=== PATIENT | male | born 1945 | race Caucasian/White ===

== ENCOUNTER 2021-04-11 08:57 | Inpatient (IN) ==
[2021-04-11] MEDS ORDERED: FAMOTIDINE 20MG/5ML IV PUSH IV STA (09:07)
[2021-04-11] MEDS ORDERED: ALUMINUM/MAGNESIUM SUSP 30 ML UDC PO STA (09:07)
--- NOTE | 2021-04-11 09:15 | Emergency Department Note ---
History of Present Illness General Chief complaint: Chest Pain Stated complaint: CHEST PAIN Time Seen by Provider: 04/11/21 08:59 Source: patient and EMS Mode of arrival: EMS Limitations: no limitations History of Present Illness Provider complaint: chest pain, sob Onset (ago): hour(s) Location: chest Radiation: non-radiation Severity: moderate Pain Consistency: + intermittent Relieved By: + none Exacerbated By: + none Associated symptoms: + denies other symptoms Treatments prior to arrival: none This is a 75-year-old male brought in by EMS from [facility] due to concern for chest pain and shortness of breath. Per EMS, they were told patient had an episode of chest pain and shortness of breath earlier this morning. He was placed on 4 L via nasal cannula. They state by the time they arrived, patient had no complaints. Patient made hemodynamically stable throughout. Patient currently at [facility] for rehab after recent admission for a right lower extremity cellulitis which is still apparent. EMS reports patient had no EKG changes. Patient denies any radiation of the pain, states it feels like "indigestion". Patient denies a history of GERD/reflux. Patient denies any coming abdominal pain, nausea, vomiting. He states he is unsure if his right lower extremity cellulitis is improving or not. He denies cough, trouble breathing, fevers or chills. Patient is vaccinated against Covid. Per medication list sent with patient, it appears patient is currently taking doxycycline for his cellulitis. Pt seen during a time of high acuity and national emergency pandemic while wearing PPE. Home Medications Medication Instructions Recorded Confirmed Type acetaminophen 325 mg tablet 650 mg PO QID 04/11/21 04/11/21 History albuterol sulfate 90 mcg/actuation 180 inh INHALATION QID PRN 04/11/21 04/11/21 History aerosol inhaler amlodipine 10 mg tablet 10 mg PO DAILY 04/11/21 04/11/21 History aspirin 81 mg tablet,delayed 81 mg PO DAILY 04/11/21 04/11/21 History release atorvastatin 40 mg tablet 80 mg PO HS 04/11/21 04/11/21 History baclofen 10 mg tablet 10 mg PO BID 04/11/21 04/11/21 History bisacodyl 10 mg rectal suppository 10 mg [place] DAILY PRN 04/11/21 04/11/21 History bupropion HCl 150 mg tablet,12 hr 300 mg PO DAILY 04/11/21 04/11/21 History sustained-release docusate sodium 100 mg capsule 100 mg PO BID 04/11/21 04/11/21 History doxycycline hyclate 100 mg tablet 100 mg PO BID 04/11/21 04/11/21 History duloxetine 30 mg capsule,delayed 60 mg PO DAILY 04/11/21 04/11/21 History release enoxaparin 40 mg/0.4 mL 40 mg SUBCUT DAILY 04/11/21 04/11/21 History subcutaneous syringe ergocalciferol (vitamin D2) 1,250 1,250 mcg PO Q7D 04/11/21 04/11/21 History mcg (50,000 unit) capsule (Vitamin D2) finasteride 5 mg tablet 5 mg PO DAILY 04/11/21 04/11/21 History fluticasone propionate 50 2 spray INTRANASAL DAILY 04/11/21 04/11/21 History mcg/actuation nasal spray,suspension furosemide 40 mg tablet 60 mg PO DAILY 04/11/21 04/11/21 History gabapentin 300 mg capsule 600 mg PO TID 04/11/21 04/11/21 History insulin regular human 100 unit/mL See Rx Instructions .ROUTE .COMPLEX 04/11/21 04/11/21 History injection solution (Humulin R Regular U-100 Insulin) lisinopril 20 mg tablet 20 mg PO DAILY 04/11/21 04/11/21 History metformin 1,000 mg tablet 1,000 mg PO BID 04/11/21 04/11/21 History metoprolol succinate 50 mg 50 mg PO DAILY 04/11/21 04/11/21 History tablet,extended release 24 hr multivitamin 1 tab PO DAILY 04/11/21 04/11/21 History nitroglycerin 0.4 mg sublingual 0.4 mg SUBLINGUAL UD PRN 04/11/21 04/11/21 History tablet oxycodone 10 mg tablet,crush 10 mg PO BID 04/11/21 04/11/21 History resistant,extended release 12 hr polyethylene glycol 3350 17 17 g PO DAILY PRN 04/11/21 04/11/21 History gram/dose oral powder sennosides 8.6 mg tablet (senna) 8.6 mg PO DAILY PRN 04/11/21 04/11/21 History sitagliptin 100 mg tablet 100 mg PO DAILY 04/11/21 04/11/21 History tamsulosin 0.4 mg capsule 0.4 mg PO BID 04/11/21 04/11/21 History topiramate 25 mg tablet 50 mg PO HS 04/11/21 04/11/21 History umeclidinium 62.5 mcg-vilanterol 1 ea INHALATION DAILY 04/11/21 04/11/21 History 25 mcg/actuation powdr for inhalation Allergies Allergy/AdvReac Type Severity Reaction Status Date / Time No Known Allergies Allergy Unverified 04/11/21 10:45 Past Med/Surg History Medical History BPH (benign prostatic hyperplasia) CAD (coronary artery disease) 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 Chronic diastolic CHF (congestive heart failure) COPD (chronic obstructive pulmonary disease) DM type 2 (diabetes mellitus, type 2) Factor VIII deficiency hemophilia HTN (hypertension) CHRISTINE on CPAP Surgical History History of neck surgery History of right-sided carotid endarterectomy Family History Mother Hypertension Social History Smoking Status: Former smoker Tobacco Type: Cigarettes Hx Alcohol Use: No Feels Safe at Home: Yes Review of Systems A total of 10 systems reviewed and were otherwise negative All systems reviewed & are unremarkable except as noted in HPI & below Physical Exam Vital Signs Vital Signs - 24 hr 04/11/21 09:00 04/11/21 10:01 04/11/21 10:35 Temperature 37.0 C Temperature Source Oral Pulse Rate 82 Pulse Rate [Right Finger] 78 Respiratory Rate 20 18 22 Respiratory Effort / Characteristics Non-Labored Non-Labored Respiratory Depth Normal Normal Blood Pressure 144/78 H Blood Pressure [Right Arm] 150/92 H 156/93 H Blood Pressure Mean 100 Blood Pressure Mean [Right Arm] 111 114 Pulse Oximetry 92 92 93 Oxygen Delivery Method Room Air Room Air Room Air Sepsis Recent Fever Within 48 Hours No Sepsis New/Unexplained Change in Mental Status N/A Sepsis Action Taken by Nursing No Action Required 04/11/21 12:12 04/11/21 13:33 Temperature Temperature Source Pulse Rate Pulse Rate [Right Finger] 78 82 Respiratory Rate 18 20 Respiratory Effort / Characteristics Non-Labored Non-Labored Respiratory Depth Normal Normal Blood Pressure Blood Pressure [Right Arm] 150/85 H 157/91 H Blood Pressure Mean Blood Pressure Mean [Right Arm] 106 113 Pulse Oximetry 92 95 Oxygen Delivery Method Room Air Room Air Sepsis Recent Fever Within 48 Hours Sepsis New/Unexplained Change in Mental Status Sepsis Action Taken by Nursing GENERAL: alert, unwell appearing, well nourished, no distress, non-toxic EYE EXAM: normal conjunctiva, PERRL and EOM's grossly intact OROPHARYNX: no exudate, no erythema, lips, buccal mucosa, and tongue normal and mucous membranes are moist NECK: supple, no nuchal rigidity, no adenopathy, non-tender LUNGS: Clear but diminished to auscultation. Normal chest wall mechanics, no w/r/r, oxygen 92% on room air HEART: no murmurs, S1 normal and S2 normal, no reproducible chest wall tenderness with palpation ABDOMEN: abdomen soft, non-tender, normo-active bowel sounds, no masses, no rebound or guarding. BACK: Back is symmetrical on inspection and there is no deformity, no midline tenderness, no CVA tenderness. SKIN: no rashes and no bruising UPPER EXTREMITIES: upper extremities are grossly normal. FROM, nml pulses b/l. LOWER EXTREMITIES: No pitting edema. nml pulses b/l. Atrophy of bilateral lower extremities. Right lower extremity with obvious cellulitis to the anterior tib-fib region, outlined previously. No obvious drainage, bleeding, petechiae, bullae, or sloughing. NEURO EXAM: Normal sensorium, cranial nerves II-XII grossly intact, normal speech, no gross weakness of arms, no gross weakness of legs. Gross sensation intact. Course Course 1052: Updated patient and at bedside. Patient did have a heart attack in 2018, stenting performed at [facility] [place]. Patient has been following with a Dr. Heaton in [place] through the [facility] system. states she does not believe he has had a stress test or echo since that time. She states when she got here patient was still complaining of pain, however now when I ask him he says it is gone. 1130: Discussed with PREMA Collado, [facility] hospitalist service. Administered Medications Sodium Chloride (Nss 1000ml) 1,000 mls @ 80 mls/hr IV .[id number] BHARTI Stop: 05/11/21 13:29 Last Admin: 04/11/21 15:11 Dose: 80 mls/hr Documented by: [id number] Discontinued Medications Al Hydrox/Mg Hydrox/Simethicone (Aluminum/Magnesium Susp 30 Ml Udc) 15 ml PO NOW STA Stop: 04/11/21 09:08 Last Admin: 04/11/21 09:58 Dose: 15 ml Documented by: [id number] Famotidine (Famotidine 20mg/5ml Iv Push) 20 mg IV ONE STA Stop: 04/11/21 09:08 Last Admin: 04/11/21 09:58 Dose: 20 mg Documented by: [id number] Potassium Chloride (Potassium Chloride Crtab 20 Meq Tabcr) 40 meq PO ONE ONE Stop: 04/11/21 13:19 Last Admin: 04/11/21 15:11 Dose: 40 meq Documented by: [id number] Medical Decision Making Differential Diagnosis Differential diagnoses includes but is not limited to acute coronary syndrome, myocardial infarction, pericarditis, pulmonary embolus, aortic dissection, pneumonia, pneumothorax, musculoskeletal, shingles, esophageal. Medical Records Attestation: I reviewed the patient's medical records. Home Medications Current Medication List: was personally reviewed by me Laboratory Data Attestation: I reviewed the patient's lab results. Result diagrams: 04/11/21 09:25 04/11/21 09:25 Lab Results 04/11/21 04/11/21 04/11/21 Range/Units 09:25 09:25 09:25 WBC 10.62 (4.8-10.8) K/uL RBC 4.46 L (4.7-6.1) M/uL Hgb 14.3 (14.0-18.0) g/dL Hct 41.6 L (42-52) % MCV 93.3 (80-100) fL MCH 32.1 (25-34) pg MCHC 34.4 (32-36) g/dL RDW Std Deviation 47.5 H (36.4-46.3) fL RDW Coeff of Sabrina 13.9 (11.5-14.5) % Plt Count 287 (130-400) K/uL MPV 9.9 (7.4-10.4) fL Immature Gran % (Auto) 1.1 % Neut % (Auto) 77.6 % Lymph % (Auto) 9.6 % [place] % (Auto) 8.2 % Eos % (Auto) 3.2 % Baso % (Auto) 0.3 % Neut # (Auto) 8.24 H (1.4-6.5) K/uL Lymph # (Auto) 1.02 L (1.2-3.4) K/uL [place] # (Auto) 0.87 H (0.11-0.59) K/uL Eos # (Auto) 0.34 (0-0.5) K/uL Baso # (Auto) 0.03 (0-0.2) K/uL Immature Gran # (Auto) 0.12 H (0.00-0.02) K/uL Sodium 141 (136-145) mmol/L Potassium 3.3 L (3.5-5.1) mmol/L Chloride 108 H (98-107) mmol/L Carbon Dioxide 24 (21-32) mmol/L Anion Gap 9.0 (3-11) BUN 39 H (7-18) mg/dl Creatinine 1.61 H (0.6-1.4) mg/dl Est Cr Clr Drug Dosing 42.9 ml/min Est GFR ( Amer) 47.1 ml/min Est GFR (Non-Af Amer) 40.6 ml/min BUN/Creatinine Ratio 24.0 H (10-20) Glucose 148 H (70-99) mg/dl Calcium 9.0 (8.5-10.1) mg/dl Magnesium 2.0 2.1 (1.8-2.4) mg/dl Total Bilirubin 0.7 (0.2-1) mg/dl AST 21 (15-37) U/L ALT 32 (12-78) U/L Alkaline Phosphatase 95 (45-117) U/L Troponin I < 0.015 (0-0.045) ng/ml NT-Pro-B Natriuret Pep 248 (0-1800) pg/ml Total Protein 7.4 (6.4-8.2) gm/dl Albumin 2.8 L (3.4-5.0) gm/dl Globulin 4.6 H (2.5-4.0) gm/dl Albumin/Globulin Ratio 0.6 L (0.9-2) Lipase 64 L (73-393) U/L COVID-19 Eval Order SARS-CoV-2 (PCR) (Negative) 04/11/21 04/11/21 04/11/21 Range/Units 09:25 12:54 12:54 WBC (4.8-10.8) K/uL RBC (4.7-6.1) M/uL Hgb (14.0-18.0) g/dL Hct (42-52) % MCV (80-100) fL MCH (25-34) pg MCHC (32-36) g/dL RDW Std Deviation (36.4-46.3) fL RDW Coeff of Sabrina (11.5-14.5) % Plt Count (130-400) K/uL MPV (7.4-10.4) fL Immature Gran % (Auto) % Neut % (Auto) % Lymph % (Auto) % [place] % (Auto) % Eos % (Auto) % Baso % (Auto) % Neut # (Auto) (1.4-6.5) K/uL Lymph # (Auto) (1.2-3.4) K/uL [place] # (Auto) (0.11-0.59) K/uL Eos # (Auto) (0-0.5) K/uL Baso # (Auto) (0-0.2) K/uL Immature Gran # (Auto) (0.00-0.02) K/uL Sodium (136-145) mmol/L Potassium (3.5-5.1) mmol/L Chloride (98-107) mmol/L Carbon Dioxide (21-32) mmol/L Anion Gap (3-11) BUN (7-18) mg/dl Creatinine (0.6-1.4) mg/dl Est Cr Clr Drug Dosing ml/min Est GFR ( Amer) ml/min Est GFR (Non-Af Amer) ml/min BUN/Creatinine Ratio (10-20) Glucose (70-99) mg/dl Calcium (8.5-10.1) mg/dl Magnesium (1.8-2.4) mg/dl Total Bilirubin (0.2-1) mg/dl AST (15-37) U/L ALT (12-78) U/L Alkaline Phosphatase (45-117) U/L Troponin I < 0.015 (0-0.045) ng/ml NT-Pro-B Natriuret Pep (0-1800) pg/ml Total Protein (6.4-8.2) gm/dl Albumin (3.4-5.0) gm/dl Globulin (2.5-4.0) gm/dl Albumin/Globulin Ratio (0.9-2) Lipase (73-393) U/L COVID-19 Eval Order Covid19 at [facility] SARS-CoV-2 (PCR) NEGATIVE (Negative) Imaging Data Radiologist's Impression: Chest X-Ray 04/11/21 09:08 SINGLE VIEW CHEST CLINICAL HISTORY: Atypical chest pain. FINDINGS: 2 AP, portable, upright chest radiographs are obtained. No prior studies are available for comparison at the time of dictation. The heart is top normal for projection. The pulmonary vasculature is noncongested. There is elevation of the right hemidiaphragm with atelectasis of the right lower lung. No airspace consolidation typical for pneumonia or large pleural effusion is identified. No pneumothorax is seen. The skeletal structures are osteopenic. Fusion hardware is noted in the lower cervical spine. There are compression deformities with evidence of previous vertebroplasty in the thoracic spine. Healed rib fractures are seen bilaterally. IMPRESSION: No acute cardiopulmonary abnormality. ACT 112: Negative or not required by law. Electronically signed by: Jerrell Winn M.D. 04/11/2021 9:58 AM ECG Data Attestation: I personally reviewed and interpreted this ECG as follows: Indication: + chest pain Rate (beats per minute): 84 Rhythm: + normal sinus ECG Intervals/blocks: + Normal QRS and + Prolonged QT ECG [place]: + Normal ECG ST segments: + T-wave inversions (V2-3, flat in I, aVL ) Comparison ECG Date: from (04/02/2021) Change: the following changes noted (new T wave inversion in V2-3) MDM Narrative This is a 75-year-old male presents emergency department following an episode of chest pain and shortness of breath earlier today. Patient's chest pain seem to be waxing and waning. Was initially improved with Pepcid and Maalox, however did return again and then hafsa without any additional intervention. Patient with an elevated heart score given multiple risk factors and prior AR with stent placement. Patient currently doing inpatient rehab for treatment of a right lower extremity cellulitis and is taking doxycycline. I do feel this could be contributing although cannot rule out underlying ACS given significant prior h istory. Patient otherwise remained hemodynamically stable. Had no episodes of recurrent shortness of breath and no hypoxia. Patient was afebrile, and outlined area of cellulitis to the right lower extremity does not appear worsened. No exam findings to suggest evolving necrotizing fasciitis. Mild YUMI was noted on the patient, however in review of his medication list patient was also recently started on furosemide. Results discussed with patient and at bedside, and case reviewed with PREMA Collado with the hospitalist service. They will evaluate for additional inpatient treatment. An order was placed for continuous cardiac monitoring. The monitor shows a rate of _80_ with _normal sinus rhythm. Impression & Plan Chest pain, YUMI (acute kidney injury), Abnormal ECG, Cellulitis of right lower extremity Discharge Plan Visit Data Chief Complaint: Chest Pain Stated Complaint: CHEST PAIN ED Provider: Michelle Willett Discharge Problem: Chest pain, YUMI (acute kidney injury), Abnormal ECG, Cellulitis of right lower extremity Forms Stand Alone Forms: My [facility] [employer] Prescriptions Prescriptions: No Action amlodipine 10 mg tablet 10 mg PO DAILY RF: 0 multivitamin Tablet 1 tab PO DAILY RF: 0 furosemide 40 mg tablet 60 mg PO DAILY RF: 0 atorvastatin 40 mg Tablet 80 mg PO HS RF: 0 bupropion HCl 150 mg Tablet Sustained-Release 12 Hr 300 mg PO DAILY RF: 0 sennosides [senna] 8.6 mg Tablet 8.6 mg PO DAILY PRN (Reason: Constipation) RF: 0 acetaminophen 325 mg Tablet 650 mg PO QID RF: 0 metoprolol succinate 50 mg Tablet Extended Release 24 Hr 50 mg PO DAILY RF: 0 lisinopril 20 mg tablet 20 mg PO DAILY RF: 0 topiramate 25 mg Tablet 50 mg PO HS RF: 0 aspirin 81 mg Tablet,Delayed Release (Dr/Ec) 81 mg PO DAILY RF: 0 tamsulosin 0.4 mg Capsule 0.4 mg PO BID RF: 0 baclofen 10 mg Tablet 10 mg PO BID RF: 0 bisacodyl 10 mg Suppository 10 mg [place] DAILY PRN (Reason: Constipation) RF: 0 metformin 1,000 mg Tablet 1,000 mg PO BID RF: 0 Humulin R Regular U-100 Insuln 100 unit/mL Solution See Rx Instructions .ROUTE .COMPLEX RF: 0 nitroglycerin 0.4 mg Tablet, Sublingual 0.4 mg sublingual UD PRN (Reason: Chest Pain) RF: 0 docusate sodium 100 mg Capsule 100 mg PO BID RF: 0 gabapentin 300 mg Capsule 600 mg PO TID RF: 0 ergocalciferol (vitamin D2) [Vitamin D2] 1,250 mcg (50,000 unit) Capsule 1,250 mcg PO Q7D RF: 0 polyethylene glycol 3350 17 gram/dose Powder 17 g PO DAILY PRN (Reason: Constipation) RF: 0 fluticasone propionate 50 mcg/actuation spray,suspension 2 spray INTRANASAL DAILY RF: 0 doxycycline hyclate 100 mg Tablet 100 mg PO BID RF: 0 finasteride 5 mg tablet 5 mg PO DAILY RF: 0 enoxaparin 40 mg/0.4 mL Syringe 40 mg SUBCUT DAILY RF: 0 duloxetine 30 mg capsule,delayed release(DR/EC) 60 mg PO DAILY RF: 0 sitagliptin 100 mg Tablet 100 mg PO DAILY RF: 0 umeclidinium-vilanterol 62.5-25 mcg/actuation Blister With Device 1 ea INHALATION DAILY RF: 0 oxycodone 10 mg Tablet,Oral Only,Ext.Rel.12 Hr 10 mg PO BID RF: 0 albuterol sulfate 90 mcg/actuation HFA aerosol inhaler 180 inh INHALATION QID PRN (Reason: Shortness Of Breath) RF: 0 Referrals Referrals: [facility] [Primary Care Provider] - Discharge Problem: Chest pain Qualifiers: Chest pain type: unspecified Qualified Code(s): R07.9 - Chest pain, unspecified
[2021-04-11 09:40] LABS: Basophils # (auto) 0.03 K/uL (0-0.2); Basophils % (auto) 0.3 %; Eosinophils # (auto) 0.34 K/uL (0-0.5); Eosinophils % (auto) 3.2 %; Hematocrit (blood only) 41.6 % (42-52); Hemoglobin 14.3 g/dL (14.0-18.0); Immature Granulocytes # (auto) 0.12 K/uL (0.00-0.02); Immature Granulocytes % (auto) 1.1 %; Lymphocytes # (auto) 1.02 K/uL (1.2-3.4); Lymphocytes % (auto) 9.6 %; Mean Corpuscular Hemoglobin 32.1 pg (25-34); Mean Corpuscular Hgb Conc 34.4 g/dL (32-36); Mean Corpuscular Volume 93.3 fL (80-100); Mean Platelet Volume 9.9 fL (7.4-10.4); Monocytes # (auto) 0.87 K/uL (0.11-0.59); Monocytes % (auto) 8.2 %; Neutrophils # (auto) 8.24 K/uL (1.4-6.5); Neutrophils % (auto) 77.6 %; Platelet Count 287 K/uL (130-400); RDW Coefficient of Variation 13.9 % (11.5-14.5); RDW Standard Deviation 47.5 fL (36.4-46.3); Red Blood Count 4.46 M/uL (4.7-6.1); White Blood Count 10.62 K/uL (4.8-10.8)
[2021-04-11 09:57] LABS: Alanine Aminotransferase 32 U/L (12-78); Albumin Level 2.8 gm/dl (3.4-5.0); Aspartate Aminotransferase 21 U/L (15-37); Blood Urea Nitrogen 39 mg/dl (7-18); Carbon Dioxide 24 mmol/L (21-32); Chloride 108 mmol/L (98-107); Creatinine Clr Calc Pharmacy 42.9 ml/min; Est GFR (African American) 47.1 ml/min; Est GFR (Non-African American) 40.6 ml/min; Glucose 148 mg/dl (70-99); Lipase 64 U/L (73-393); Potassium 3.3 mmol/L (3.5-5.1); Sodium 141 mmol/L (136-145)
--- NOTE | 2021-04-11 09:59 | XRay Report ---
SINGLE VIEW CHEST CLINICAL HISTORY: Atypical chest pain. FINDINGS: 2 AP, portable, upright chest radiographs are obtained. No prior studies are available for comparison at the time of dictation. The heart is top normal for projection. The pulmonary vasculatu re is noncongested. There is elevation of the right hemidiaphragm with atelectasis of the right lower lung. No airspace consolidation typical for pneumonia or large pleural effusion is identified. No pn eumothorax is seen. The skeletal structures are osteopenic. Fusion hardware is noted in the lower cer vical spine. There are compression deformities with evidence of previous vertebroplasty in the thorac ic spine. Healed rib fractures are seen bilaterally. IMPRESSION: No acute cardiopulmonary abnormality. ACT 112: Negative or not required by law. Electronically signed by: Jerrell Winn M.D. 04/11/2021 9:58 AM
[2021-04-11 10:02] LABS: Albumin Globulin Ratio 0.6 (0.9-2); Alkaline Phosphatase 95 U/L (45-117); Bilirubin,Total 0.7 mg/dl (0.2-1); Globulin 4.6 gm/dl (2.5-4.0); NT Pro B Type Natriuretic Pept 248 pg/ml (0-1800); Total Protein 7.4 gm/dl (6.4-8.2); Troponin I < 0.015 ng/ml (0-0.045)
[2021-04-11] MEDS ORDERED: POTASSIUM CHLORIDE CRTAB 20 MEQ TABCR PO ONE (13:18)
--- NOTE | 2021-04-11 13:42 | Cardiology Consultation ---
Date of Consultation April 11, 2021 Assessment & Plan (1) Cellulitis of right lower extremity: (2) Chest pain: (3) YUMI (acute kidney injury): (4) Factor VIII deficiency hemophilia: (5) CAD (coronary artery disease): (6) Chronic diastolic CHF (congestive heart failure): The patient is currently hemodynamically stable and is not having any chest pain or shortness of breath. I would admit the patient and draw additional cardiac markers and serial EKGs. We will follow along with you during his hospital stay. History of Present Illness History of Present Illness This is a 75-year-old male patient who is not a good historian but his is at his bedside. 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 According to his he has been in a wheelchair ever since. She has been his caregiver following that procedure. In 2017 he did present with an inferior wall myocardial infarction received a bare-metal stent within the right coronary artery. From a cardiac standpoint he has been stable but recently he had some mental status changes and was admitted to [facility] with sepsis and a right lower extremity cellulitis. Eventually he was transferred to [facility] and has been there approximately 5 days. According to his and the medical record he had chest pain there this morning and was transferred to the emergency department. His EKG here shows no acute changes. First set of cardiac markers are negative. He currently is asymptomatic and in no acute distress. Past medical history: 1. 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 Chronic diastolic heart failure 3. Hypertension 4. Dyslipidemia 5. Carotid artery disease status post right CEA 6. Diabetes with neuropathy 7. COPD 8. Hemophilia with factor VIII deficiency 9. Obstructive sleep apnea Allergies Allergy/AdvReac Type Severity Reaction Status Date / Time No Known Allergies Allergy Unverified 04/11/21 10:45 Home Medications Medication Instructions Recorded Confirmed Type acetaminophen 325 mg tablet 650 mg PO QID 04/11/21 04/11/21 History albuterol sulfate 90 mcg/actuation 180 inh INHALATION QID PRN 04/11/21 04/11/21 History aerosol inhaler amlodipine 10 mg tablet 10 mg PO DAILY 04/11/21 04/11/21 History aspirin 81 mg tablet,delayed 81 mg PO DAILY 04/11/21 04/11/21 History release atorvastatin 40 mg tablet 80 mg PO HS 04/11/21 04/11/21 History baclofen 10 mg tablet 10 mg PO BID 04/11/21 04/11/21 History bisacodyl 10 mg rectal suppository 10 mg MS DAILY PRN 04/11/21 04/11/21 History bupropion HCl 150 mg tablet,12 hr 300 mg PO DAILY 04/11/21 04/11/21 History sustained-release docusate sodium 100 mg capsule 100 mg PO BID 04/11/21 04/11/21 History doxycycline hyclate 100 mg tablet 100 mg PO BID 04/11/21 04/11/21 History duloxetine 30 mg capsule,delayed 60 mg PO DAILY 04/11/21 04/11/21 History release enoxaparin 40 mg/0.4 mL 40 mg SUBCUT DAILY 04/11/21 04/11/21 History subcutaneous syringe ergocalciferol (vitamin D2) 1,250 1,250 mcg PO Q7D 04/11/21 04/11/21 History mcg (50,000 unit) capsule (Vitamin D2) finasteride 5 mg tablet 5 mg PO DAILY 04/11/21 04/11/21 History fluticasone propionate 50 2 spray INTRANASAL DAILY 04/11/21 04/11/21 History mcg/actuation nasal spray,suspension furosemide 40 mg tablet 60 mg PO DAILY 04/11/21 04/11/21 History gabapentin 300 mg capsule 600 mg PO TID 04/11/21 04/11/21 History insulin regular human 100 unit/mL See Rx Instructions .ROUTE .COMPLEX 04/11/21 04/11/21 History injection solution (Humulin R Regular U-100 Insulin) lisinopril 20 mg tablet 20 mg PO DAILY 04/11/21 04/11/21 History metformin 1,000 mg tablet 1,000 mg PO BID 04/11/21 04/11/21 History metoprolol succinate 50 mg 50 mg PO DAILY 04/11/21 04/11/21 History tablet,extended release 24 hr multivitamin 1 tab PO DAILY 04/11/21 04/11/21 History nitroglycerin 0.4 mg sublingual 0.4 mg SUBLINGUAL UD PRN 04/11/21 04/11/21 History tablet oxycodone 10 mg tablet,crush 10 mg PO BID 04/11/21 04/11/21 History resistant,extended release 12 hr polyethylene glycol 3350 17 17 g PO DAILY PRN 04/11/21 04/11/21 History gram/dose oral powder sennosides 8.6 mg tablet (senna) 8.6 mg PO DAILY PRN 04/11/21 04/11/21 History sitagliptin 100 mg tablet 100 mg PO DAILY 04/11/21 04/11/21 History tamsulosin 0.4 mg capsule 0.4 mg PO BID 04/11/21 04/11/21 History topiramate 25 mg tablet 50 mg PO HS 04/11/21 04/11/21 History umeclidinium 62.5 mcg-vilanterol 1 ea INHALATION DAILY 04/11/21 04/11/21 History 25 mcg/actuation powdr for inhalation Patient History Medical History BPH (benign prostatic hyperplasia) CAD (coronary artery disease) 01/2018-inferior [place] s/p BMS to proximal RCA Chronic diastolic CHF (congestive heart failure) COPD (chronic obstructive pulmonary disease) DM type 2 (diabetes mellitus, type 2) Factor VIII deficiency hemophilia HTN (hypertension) CHRISTINE on CPAP Surgical History History of neck surgery History of right-sided carotid endarterectomy Family History Mother Hypertension Social History Smoking Status: Former smoker Tobacco Type: Cigarettes Hx Alcohol Use: No Feels Safe at Home: Yes Review of Systems Review of Systems: Unobtainable Physical Exam Physical Exam: General: no acute distress and stated age Head: normocephalic, no masses, lesions, tenderness or abnormalities Eyes: conjunctiva are pink and non-injected, sclera clear Neck: supple, no adenopathy, no bruits, normal jugular venous pulse, no hepatojugular reflux Chest: normal shape and normal respiratory effort Lungs: clear to auscultation and percussion Cardiac Exam: - regular rate & rhythm, no murmurs gallops or rubs - normal S1, normal S2 Pulses: 2(+) throughout Abdomen: abdomen soft, non-tender, no abnormal masses and no hepatosplenomegaly Musculoskeletal: no gait disturbance, no joint inflammation, no deforming arthritis Extremities: Right lower extremity is red and erythematous with a bandage on the ojhnson. Neuro: grossly normal exam Results & Data ([facility]) Vital Signs (Past 12 Hours) Vital Signs Temp Pulse Pulse Resp BP BP Pulse Ox 04/11/21 13:33 82 20 157/91 H 95 04/11/21 12:12 78 18 150/85 H 92 04/11/21 10:35 78 22 156/93 H 93 04/11/21 10:01 18 150/92 H 92 04/11/21 09:00 37.0 C 82 20 144/78 H 92 Laboratory Results Laboratory Results - last 24 hr 04/11/21 04/11/21 04/11/21 09:25 09:25 09:25 WBC 10.62 RBC 4.46 L Hgb 14.3 Hct 41.6 L MCV 93.3 MCH 32.1 MCHC 34.4 RDW Std Deviation 47.5 H RDW Coeff of Sabrina 13.9 Plt Count 287 MPV 9.9 Immature Gran % (Auto) 1.1 Neut % (Auto) 77.6 Lymph % (Auto) 9.6 Hendricks % (Auto) 8.2 Eos % (Auto) 3.2 Baso % (Auto) 0.3 Neut # (Auto) 8.24 H Lymph # (Auto) 1.02 L Hendricks # (Auto) 0.87 H Eos # (Auto) 0.34 Baso # (Auto) 0.03 Immature Gran # (Auto) 0.12 H Sodium 141 Potassium 3.3 L Chloride 108 H Carbon Dioxide 24 Anion Gap 9.0 BUN 39 H Creatinine 1.61 H Est Cr Clr Drug Dosing 42.9 Est GFR ( Amer) 47.1 Est GFR (Non-Af Amer) 40.6 BUN/Creatinine Ratio 24.0 H Glucose 148 H Calcium 9.0 Magnesium 2.0 Pending Total Bilirubin 0.7 AST 21 ALT 32 Alkaline Phosphatase 95 Troponin I < 0.015 NT-Pro-B Natriuret Pep 248 Total Protein 7.4 Albumin 2.8 L Globulin 4.6 H Albumin/Globulin Ratio 0.6 L Lipase 64 L COVID-19 Eval Order SARS-CoV-2 (PCR) 04/11/21 04/11/21 12:54 12:54 WBC RBC Hgb Hct MCV MCH MCHC RDW Std Deviation RDW Coeff of Sabrina Plt Count MPV Immature Gran % (Auto) Neut % (Auto) Lymph % (Auto) Hendricks % (Auto) Eos % (Auto) Baso % (Auto) Neut # (Auto) Lymph # (Auto) Hendricks # (Auto) Eos # (Auto) Baso # (Auto) Immature Gran # (Auto) Sodium Potassium Chloride Carbon Dioxide Anion Gap BUN Creatinine Est Cr Clr Drug Dosing Est GFR ( Amer) Est GFR (Non-Af Amer) BUN/Creatinine Ratio Glucose Calcium Magnesium Total Bilirubin AST ALT Alkaline Phosphatase Troponin I NT-Pro-B Natriuret Pep Total Protein Albumin Globulin Albumin/Globulin Ratio Lipase COVID-19 Eval Order Covid19 at [facility] SARS-CoV-2 (PCR) NEGATIVE Medications Administered Current Inpatient Medications Sodium Chloride (Nss 1000ml) 1,000 mls @ 80 mls/hr IV .[id number] BHARTI Stop: 05/11/21 13:29
--- NOTE | 2021-04-11 13:58 | History & Physical Report ---
Date of Service April 11, 2021 Assessment & Plan (1) Chest pain: (2) CAD (coronary artery disease): Plan: -Admit to telemetry -Patient presenting from [facility] with reports of an episode of chest pain. Patient is a poor historian. -History of CAD, inferior wall AK in 2018 s/p BMS to proximal RCA -In the ED, patient's EKG shows new T wave inversions in leads V1 through V3, initial troponin negative -Symptoms may be GI in nature due to recent initiation of doxycycline, however given risk factors will admit patient to rule out ACS -Serial cardiac enzymes, resting echo -Cardiology consult, case discussed with Dr. Gonzalez -Continue ASA, statin, beta-bryant. Holding CAYDEN inhibitor due to YUMI (3) YUMI (acute kidney injury): Plan: -Creatinine 1.6 (baseline ~ 1.1) -Patient's reports that he does not drink a lot of fluids at baseline. -Likely prerenal nature due to poor p.o. intake in combination with CAYDEN inhibitor and diuretic use -Hold lisinopril and furosemide -Gentle IVF, follow-up renal functions (4) Cellulitis of right lower extremity: Plan: -Recently admitted to [facility] for sepsis due to cellulitis of right lower extremity -Discharged on doxycycline, patient to complete course on 04/15 (5) HTN (hypertension): Plan: -BP elevated, may be situational -Continue metoprolol and amlodipine, holding lisinopril as above. (6) Chronic diastolic CHF (congestive heart failure): Plan: -Currently with YUMI, therefore will hold furosemide -Monitor volume status closely (7) CHRISTINE on CPAP: Plan: -CPAP as per home settings (8) COPD (chronic obstructive pulmonary disease): Plan: -No signs of acute exacerbation, continue home inhalers (9) DM type 2 (diabetes mellitus, type 2): Plan: -Hgb A1c 6.5 02/2021 -NovoLog per protocol while hospitalized (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: Plan: -No acute issues, follows with the hemophilia center at [facility] (11) DVT prophylaxis: Plan: -SQ heparin History of Present Illness Chief Complaint: Chest pain [facility] 75[facility] with PMH DM type II, COPD, CHRISTINE on CPAP, chronic diastolic CHF, CAD s/p inferior AK and BMS to proximal RCA, GERD, BPH, factor VIII deficiency hemophilia, history of right carotid endarterectomy, and other problems listed below who presents to the ED for evaluation of chest pain. Patient was recently admitted to [facility] 04/02 through 04/07 for right lower extremity cellulitis. Right foot x-ray showed a second metatarsal fracture. Patient was discharged on p.o. doxycycline. He was discharged to [facility] for rehab. Patient is a somewhat poor historian. is at the bedside. She reports that since the patient's neck surgery in 2012, he has been mostly wheelchair-bound. He is able to transfer to bed and commode. This morning, patient reports that he developed a substernal chest pain while lying in bed. Describes the pain as a pressure and when asked rate intensity he states " it was bad enough". He denies associated shortness of breath, nausea, diaphoresis. Patient is unsure how long the pain lasted. He had another similar episode in the ED. No fevers or chills. Denies vomiting, abdominal pain, diarrhea. No urinary symptoms. In the ED, EKG shows new T wave inversions in leads V1-V3, initial troponin is negative. Labs show a mild YUMI with creatinine 1.6 (baseline ~ 1.0). Patient was given GI cocktail and IV famotidine. Allergies Allergy/AdvReac Type Severity Reaction Status Date / Time No Known Allergies Allergy Unverified 04/11/21 10:45 Home Medications Medication Instructions Recorded Confirmed Type acetaminophen 325 mg tablet 650 mg PO QID 04/11/21 04/11/21 History albuterol sulfate 90 mcg/actuation 180 inh INHALATION QID PRN 04/11/21 04/11/21 History aerosol inhaler amlodipine 10 mg tablet 10 mg PO DAILY 04/11/21 04/11/21 History aspirin 81 mg tablet,delayed 81 mg PO DAILY 04/11/21 04/11/21 History release atorvastatin 40 mg tablet 80 mg PO HS 04/11/21 04/11/21 History baclofen 10 mg tablet 10 mg PO BID 04/11/21 04/11/21 History bisacodyl 10 mg rectal suppository 10 mg KS DAILY PRN 04/11/21 04/11/21 History bupropion HCl 150 mg tablet,12 hr 300 mg PO DAILY 04/11/21 04/11/21 History sustained-release docusate sodium 100 mg capsule 100 mg PO BID 04/11/21 04/11/21 History doxycycline hyclate 100 mg tablet 100 mg PO BID 04/11/21 04/11/21 History duloxetine 30 mg capsule,delayed 60 mg PO DAILY 04/11/21 04/11/21 History release enoxaparin 40 mg/0.4 mL 40 mg SUBCUT DAILY 04/11/21 04/11/21 History subcutaneous syringe ergocalciferol (vitamin D2) 1,250 1,250 mcg PO Q7D 04/11/21 04/11/21 History mcg (50,000 unit) capsule (Vitamin D2) finasteride 5 mg tablet 5 mg PO DAILY 04/11/21 04/11/21 History fluticasone propionate 50 2 spray INTRANASAL DAILY 04/11/21 04/11/21 History mcg/actuation nasal spray,suspension furosemide 40 mg tablet 60 mg PO DAILY 04/11/21 04/11/21 History gabapentin 300 mg capsule 600 mg PO TID 04/11/21 04/11/21 History insulin regular human 100 unit/mL See Rx Instructions .ROUTE .COMPLEX 04/11/21 04/11/21 History injection solution (Humulin R Regular U-100 Insulin) lisinopril 20 mg tablet 20 mg PO DAILY 04/11/21 04/11/21 History metformin 1,000 mg tablet 1,000 mg PO BID 04/11/21 04/11/21 History metoprolol succinate 50 mg 50 mg PO DAILY 04/11/21 04/11/21 History tablet,extended release 24 hr multivitamin 1 tab PO DAILY 04/11/21 04/11/21 History nitroglycerin 0.4 mg sublingual 0.4 mg SUBLINGUAL UD PRN 04/11/21 04/11/21 History tablet oxycodone 10 mg tablet,crush 10 mg PO BID 04/11/21 04/11/21 History resistant,extended release 12 hr polyethylene glycol 3350 17 17 g PO DAILY PRN 04/11/21 04/11/21 History gram/dose oral powder sennosides 8.6 mg tablet (senna) 8.6 mg PO DAILY PRN 04/11/21 04/11/21 History sitagliptin 100 mg tablet 100 mg PO DAILY 04/11/21 04/11/21 History tamsulosin 0.4 mg capsule 0.4 mg PO BID 04/11/21 04/11/21 History topiramate 25 mg tablet 50 mg PO HS 04/11/21 04/11/21 History umeclidinium 62.5 mcg-vilanterol 1 ea INHALATION DAILY 04/11/21 04/11/21 History 25 mcg/actuation powdr for inhalation Past Med/Surg History Medical History BPH (benign prostatic hyperplasia) CAD (coronary artery disease) 01/2018-inferior [place] s/p BMS to proximal RCA Chronic diastolic CHF (congestive heart failure) COPD (chronic obstructive pulmonary disease) DM type 2 (diabetes mellitus, type 2) Factor VIII deficiency hemophilia HTN (hypertension) CHRISTINE on CPAP Surgical History History of neck surgery History of right-sided carotid endarterectomy Family History Mother Hypertension Social History Smoking Status: Former smoker Tobacco Type: Cigarettes Hx Alcohol Use: No Feels Safe at Home: Yes Review of Systems Review of Systems: ROS per HPI, all other systems reviewed and negative Physical Exam Constitutional: WD/WN, vitals as above + ill appearing (Chronically) Eyes: PERRL, conjunctivae normal, anicteric sclerae ENMT: external ear and nose normal, oropharynx normal Respiratory: normal respiratory effort, lungs clear to auscultation Cardiovascular: Rate/Rhythm: regular rate and regular rhythm Vessels: normal peripheral pulses Extremities: + edema (+1-2 edema BLE) Gastrointestinal (Abdomen): normal bowel sounds, soft, nontender, no hepatosplenomegaly Musculoskeletal: Extremities: no cyanosis and no clubbing Lower extremity strength 3/5 -at baseline Skin: no rashes, warm and dry Chronic discoloration noted to RLE with some surrounding erythema extending over the foot. report this continues to improve. Neurologic: PERRL, EOMI, accommodation nl, no face palsy, no dysarthria Psychiatric: A+Ox3, euthymic affect Results & Data Results & Data ([facility]) Vital Signs (Past 12 Hours) Vital Signs Temp Pulse Pulse Resp BP BP Pulse Ox 04/11/21 13:33 82 20 157/91 H 95 04/11/21 12:12 78 18 150/85 H 92 04/11/21 10:35 78 22 156/93 H 93 04/11/21 10:01 18 150/92 H 92 04/11/21 09:00 37.0 C 82 20 144/78 H 92 Laboratory Results Short CBC 04/11/21 Range/Units 09:25 WBC 10.62 (4.8-10.8) K/uL Hgb 14.3 (14.0-18.0) g/dL Hct 41.6 L (42-52) % Plt Count 287 (130-400) K/uL BMP 04/11/21 09:25 Sodium 141 Potassium 3.3 L Chloride 108 H Carbon Dioxide 24 BUN 39 H Creatinine 1.61 H Glucose 148 H Calcium 9.0 Cardiac Enzymes 04/11/21 Range/Units 09:25 Troponin I < 0.015 (0-0.045) ng/ml Liver Function 04/11/21 Range/Units 09:25 Total Bilirubin 0.7 (0.2-1) mg/dl AST 21 (15-37) U/L ALT 32 (12-78) U/L Alkaline Phosphatase 95 (45-117) U/L Albumin 2.8 L (3.4-5.0) gm/dl Diagnostic Findings Chest X-Ray 04/11/21 09:08 SINGLE VIEW CHEST CLINICAL HISTORY: Atypical chest pain. FINDINGS: 2 AP, portable, upright chest radiographs are obtained. No prior studies are available for comparison at the time of dictation. The heart is top normal for projection. The pulmonary vasculature is noncongested. There is elevation of the right hemidiaphragm with atelectasis of the right lower lung. No airspace consolidation typical for pneumonia or large pleural effusion is identified. No pneumothorax is seen. The skeletal structures are osteopenic. Fusion hardware is noted in the lower cervical spine. There are compression deformities with evidence of previous vertebroplasty in the thoracic spine. Healed rib fractures are seen bilaterally. IMPRESSION: No acute cardiopulmonary abnormality. ACT 112: Negative or not required by law. Electronically signed by: Jerrell Winn M.D. 04/11/2021 9:58 AM Code Status & VTE Plan Code Status Patient is a DNR as per my discussion with him. VTE Prophylaxis Plan VTE Prophylaxis will be ordered: Yes Supervising Physician Co-Signing Physician Notes Attending Addendum: care coordinated with PREMA Mccabe please refer to her notes for full details, I agree with her notes patient seen and examined, records reviewed by myself as well on exam, patient seen resting in bed, sleeping but easily awakened denies active chest pain, dyspnea, palpitations, dizziness no other symptoms VS noted and reviewed oriented x 3 , not in distress, speaks in sentences with no effort nor accessory muscle use normal rate, regular rhythm, no murmurs clear breath sounds bilaterally non distended, soft, nontender R LE: (+) mild edema, erythema, warmth (+) open blister with yellow discharge no neuro deficits WBC 10.6 Hg 14.3 Crea 1.6 CXR: no acute abnormalities ASSESSMENT AND PLAN CHEST PAIN, R/O ACUTE CORONARY SYNDROME - troponin x 2 negative EKG: new non speficif T wave inversions in leads V1 through V3 - chest pain free on my exam continue ASA, Metoprolol - Draw Furnace Tender consulted RLE CELLULITIS - draining blister noted wound culture ordered - continue Doxycycline daily wound care other diagnoses and plan of care as per PREMA Mccabe's notes Fabrizio Ham MD
[2021-04-11] MEDS: SODIUM CHLORIDE 0.9% 1000ML 1,000 ML IV SCH ×2 (15:11→23:15)
[2021-04-11] MEDS ORDERED: GLUCOSE 10 TABS/TUBE PO PRN (17:41)
[2021-04-11] MEDS ORDERED: ACETAMINOPHEN 325 MG TAB PO PRN (17:41)
[2021-04-11] MEDS ORDERED: GLUCAGON FOR INJ 1 MG VIAL SQ PRN (17:41)
[2021-04-11] MEDS ORDERED: CARBOHYDRATES FOR HYPOGLYCEMIA PO PRN (17:41)
[2021-04-11] MEDS ORDERED: DEXTROSE 50% 50 ML SYRINGE IV PRN (17:41)
[2021-04-11] MEDS ORDERED: GLUCOSE 40% GEL 15 GM TUBE PO PRN (17:41)
[2021-04-11] MEDS ORDERED: NITROGLYCERIN SL 0.4 MG/TAB TAB SL PRN (17:41)
--- NOTE | 2021-04-11 18:17 | Electrocardiogram Report ---
Test Reason : Blood Pressure : / mmHG Vent. Rate : 084 BPM Atrial Rate : 084 BPM P-R Int : 152 ms QRS Dur : 094 ms QT Int : 436 ms P-R-T Axes : 028 027 091 degrees QTc Int : 515 ms Poor data quality, interpretation may be adversely affected Normal sinus rhythm posterior infarct , age undetermined Nonspecific ST abnormality Abnormal ECG No previous ECGs available Confirmed by Chaz Arteaga ([id number]) on 04/11/2021 6:17:36 PM Referred By: [facility] Confirmed By:Oscar Arteaga
[2021-04-11] MEDS: HEPARIN SOD 5,000 UNIT/0.5 ML VIAL SQ SCH (19:01)
[2021-04-11] MEDS: INSULIN ASPART 100 UNITS/ML 3 ML PEN SC SCH ×2 (19:02→21:01)
[2021-04-11] MEDS: DOCUSATE SODIUM 100 MG CAP PO SCH (20:46)
[2021-04-11] MEDS: ATORVASTATIN 40 MG TAB PO SCH (20:46)
[2021-04-11] MEDS: BACLOFEN 10 MG TAB PO SCH (20:47)
[2021-04-11] MEDS: DOXYCYCLINE HYCLATE 100 MG CAP PO SCH (20:48)
[2021-04-11] MEDS: GABAPENTIN 300 MG CAP PO SCH (20:48)
[2021-04-11] MEDS: TAMSULOSIN HCL 0.4 MG CAP PO SCH (20:54)
[2021-04-11] MEDS: TOPIRAMATE 50 MG TAB PO SCH (20:54)
[2021-04-11] MEDS: oxyCODONE HCL 10 MG TABCR (OxyCONTIN) PO SCH (22:18)
[2021-04-12 06:32] LABS: Hematocrit (blood only) 36.8 % (42-52); Hemoglobin 12.6 g/dL (14.0-18.0); Mean Corpuscular Hemoglobin 31.9 pg (25-34); Mean Corpuscular Hgb Conc 34.2 g/dL (32-36); Mean Corpuscular Volume 93.2 fL (80-100); Mean Platelet Volume 9.7 fL (7.4-10.4); Platelet Count 281 K/uL (130-400); RDW Coefficient of Variation 13.9 % (11.5-14.5); RDW Standard Deviation 47.8 fL (36.4-46.3); Red Blood Count 3.95 M/uL (4.7-6.1); White Blood Count 7.93 K/uL (4.8-10.8)
[2021-04-12 07:07] LABS: BUN Creatinine Ratio 24.4 (10-20); Calcium 8.7 mg/dl (8.5-10.1); Creatinine Clr Calc Pharmacy 59.3 ml/min; Est GFR (African American) 72.3 ml/min; Est GFR (Non-African American) 62.4 ml/min; Potassium 3.3 mmol/L (3.5-5.1)
[2021-04-12] MEDS: oxyCODONE HCL 10 MG TABCR (OxyCONTIN) PO SCH ×2 (08:41→20:46)
[2021-04-12] MEDS: DOXYCYCLINE HYCLATE 100 MG CAP PO SCH ×2 (08:42→20:23)
[2021-04-12] MEDS: UMECLIDINIUM/VILANTEROL 62.5/25MCG 7 PUFFS/INHALER INH SCH (08:42)
[2021-04-12] MEDS: TAMSULOSIN HCL 0.4 MG CAP PO SCH ×2 (08:42→20:46)
[2021-04-12] MEDS: GABAPENTIN 300 MG CAP PO SCH ×2 (08:42→20:23)
[2021-04-12] MEDS: DOCUSATE SODIUM 100 MG CAP PO SCH ×2 (08:43→20:41)
[2021-04-12] MEDS: BACLOFEN 10 MG TAB PO SCH ×2 (08:43→20:45)
[2021-04-12] MEDS: FINASTERIDE 5 MG TAB PO SCH (08:44)
[2021-04-12] MEDS: DULoxetine HCL 60 MG CAP PO SCH (08:44)
[2021-04-12] MEDS: ASPIRIN 81 MG ECTAB PO SCH (08:44)
[2021-04-12] MEDS: METOPROLOL SUCC 50MG EXT REL TAB PO SCH (08:44)
[2021-04-12] MEDS: buPROPion SR 150 MG TABCR PO SCH (08:45)
[2021-04-12] MEDS: amLODIPine BESYLATE 5 MG TAB PO SCH (08:45)
[2021-04-12] MEDS: HEPARIN SOD 5,000 UNIT/0.5 ML VIAL SQ SCH ×3 (08:45→20:46)
[2021-04-12] MEDS: INSULIN ASPART 100 UNITS/ML 3 ML PEN SC SCH ×4 (09:49→20:24)
[2021-04-12] MEDS ORDERED: ALUMINUM/MAGNESIUM SUSP 30 ML UDC PO PRN (10:26)
--- NOTE | 2021-04-12 10:54 | Hospitalist Progress Note ---
Date of Service April 12, 2021 Assessment & Plan (1) Chest pain: (2) CAD (coronary artery disease): Plan: Per PREMA jay: -Patient presenting from [facility] with reports of an episode of chest pain. Patient is a poor historian. -History of CAD, inferior wall DC in 2018 s/p BMS to proximal RCA -In the ED, patient's EKG shows new T wave inversions in leads V1 through V3, initial troponin negative -Symptoms may be GI in nature due to recent initiation of doxycycline, however given risk factors will admit patient to rule out ACS -Serial cardiac enzymes, resting echo -Cardiology consult, case discussed with Dr. Gonzalez -Continue ASA, statin, beta-bryant. Holding CAYDEN inhibitor due to YUMI 04/12/2021 Troponin x3: Negative EKG this morning not showing any signs of acute ischemia or infarct Echocardiogram pending [employer] Oven Operator consulted Continue usual aspirin, metoprolol, lisinopril (3) YUMI (acute kidney injury): Plan: Per PREMA jay's notes: -Creatinine 1.6 (baseline ~ 1.1) -Patient's reports that he does not drink a lot of fluids at baseline. -Likely prerenal nature due to poor p.o. intake in combination with CAYDEN inhibitor and diuretic use Given gentle IV fluids Creatinine improved from 1.6-1.1 Resume lisinopril Hold Lasix for now (4) Cellulitis of right lower extremity: Plan: -Recently admitted to [facility] for sepsis due to cellulitis of right lower extremity -Discharged on doxycycline, patient to complete course on 04/15 Wound culture ordered Wound care nurse consult (5) HTN (hypertension): Plan: -Continue metoprolol and amlodipine, resume lisinopril (6) Chronic diastolic CHF (congestive heart failure): Plan: -Currently with YUMI -Appears euvolemic on my exam Hold Lasix for today in light of acute renal failure yesterday -Monitor volume status closely (7) CHRISTINE on CPAP: Plan: -CPAP as per home settings (8) COPD (chronic obstructive pulmonary disease): Plan: -No signs of acute exacerbation, continue home inhalers (9) DM type 2 (diabetes mellitus, type 2): Plan: -Hgb A1c 6.5 02/2021 -NovoLog per protocol while hospitalized (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: Plan: -No acute issues, follows with the hemophilia center at [facility] (11) DVT prophylaxis: Plan: -SQ heparin Admission and Anticipated Discharge Date Admission Date: April 11, 2021 Subjective Follow-up for chest pain, etc. Seen resting bed, comfortable, not in distress States he feels fine overall, no chest pain overnight While doing physical therapy today patient had an episode of chest discomfort described as gas, reflux type discomfort Denies having sensation of chest pressure, nausea vomiting, shortness of breath, dizziness, palpitations No abdominal pain No fevers or chills Denies any leg pain No other symptoms Review of Systems Review of Systems: all noted and negative except for above Physical Exam Physical Exam: General- oriented x 2, not in distress, speaks in sentences with no effort or accessory muscle use Eyes- anicteric Neck- no JVD Lungs- clear breath sounds bilaterally, no rales/wheezes Heart- normal rate, regular rhythm; no murmurs Abdomen- normal bowel sounds, nondistended, soft, nontender Extremities-positive mild edema of the right lower extremity-lower leg, mild erythema receding from demarcation line, open blister, with yellow discharge, no warmth no Calf tenderness Neuro- alert, oriented x 2; no gross focal neurologic deficits Skin- warm & dry Results & Data Results & Data ([facility]) Vital Signs (Past 12 Hours) Vital Signs Temp Pulse Pulse Resp BP Pulse Ox 04/12/21 10:35 36.8 C 93 H 17 141/87 H 92 04/12/21 08:00 86 04/12/21 07:32 36.8 C 88 17 137/80 90 04/12/21 03:29 36.8 C 83 18 150/80 H 93 04/11/21 23:54 81 all noted and reviewed including below
--- NOTE | 2021-04-12 11:07 | Electrocardiogram Report ---
Test Reason : Blood Pressure : / mmHG Vent. Rate : 081 BPM Atrial Rate : 081 BPM P-R Int : 146 ms QRS Dur : 092 ms QT Int : 386 ms P-R-T Axes : 092 031 090 degrees QTc Int : 448 ms Normal sinus rhythm Nonspecific ST and T wave abnormality Abnormal ECG When compared with ECG of 11-APR-2021 09:08, Criteria for Lateral infarct are no longer Present QT has shortened Confirmed by Chaz Arteaga ([id number]) on 04/12/2021 11:07:24 AM Referred By: [facility] Confirmed By:Oscar Arteaga
--- NOTE | 2021-04-12 11:15 | Electrocardiogram Report ---
Test Reason : Blood Pressure : / mmHG Vent. Rate : 086 BPM Atrial Rate : 086 BPM P-R Int : 158 ms QRS Dur : 088 ms QT Int : 404 ms P-R-T Axes : 053 033 075 degrees QTc Int : 483 ms Normal sinus rhythm possible posterior infarct , age undetermined Abnormal ECG When compared with ECG of 11-APR-2021 17:54, (unconfirmed) No significant change was found Confirmed by Chaz Arteaga ([id number]) on 04/12/2021 11:15:17 AM Referred By: [facility] Confirmed By:Oscar Arteaga
[2021-04-12] MEDS: POTASSIUM CHLORIDE CRTAB 20 MEQ TABCR PO SCH (12:03)
[2021-04-12] MEDS: lisinopril 20 MG TAB PO SCH (12:20)
[2021-04-12] MEDS: PANTOprazole 40 MG TAB PO SCH (12:20)
--- NOTE | 2021-04-12 17:22 | Cardiology Progress Note ---
Date of Service April 12, 2021 Assessment & Plan (1) Chest pain: Plan: Intermittent chest discomfort in a patient who has had prolonged recent hospital stay. Troponin I has been undetectable x3. EKG tracings performed on a serial basis without acute repolarization abnormalities. There is findings of an age- indeterminate inferior/posterior infarction, this is also noted on his echocardiogram, and is consistent with his history of past OK in that territory. No further cardiac testing is felt to be indicated at present. Continue treatment with aspirin, atorvastatin, metoprolol, lisinopril. Case discussed with Dr Ham, given his risk factors, consideration of venous thromboembolic event is a consideration, I am going to defer further evaluation of this to him. Admission and Anticipated Discharge Date Admission Date: April 11, 2021 Subjective Patient seen in follow-up. He had chest discomfort when he was utilizing his upper body during physical therapy, but per my interview with the patient and his nurse it does not sound characteristic of angina. Vital signs have been stable. Telemetry reveals sinus rhythm in the 80s. Review of Systems Review of Systems: Unobtainable due to cognitive status Physical Exam Physical Exam: Temp Pulse Resp BP Pulse Ox 36.9 C 83 17 106/70 91 04/12/21 15:00 04/12/21 16:00 04/12/21 15:00 04/12/21 15:00 04/12/21 15:00 Constitutional: No acute distress, interview limited, question if there is a underlying cognitive impairment on a chronic basis. He was unaware of the details of his past heart history. Respiratory: normal respiratory effort, lungs clear to auscultation Cardiovascular: RRR, no murmur, no edema Chest (Breasts): normal inspection/palpation of breasts Neurologic: No focal deficits Results & Data ([facility]) Vital Signs (Past 12 Hours) Vital Signs Temp Pulse Pulse Resp BP Pulse Ox 04/12/21 16:00 83 04/12/21 15:00 36.9 C 85 17 106/70 91 04/12/21 10:35 36.8 C 93 H 17 141/87 H 92 04/12/21 08:00 86 04/12/21 07:32 36.8 C 88 17 137/80 90 Diagnostic Findings EKG performed today 04/12/2021 at 550 revealed normal sinus rhythm, age- indeterminate posterior infarct pattern noted, no acute repolarization changes Echocardiogram revealed a small sized basal inferior and basal posterior wall motion abnormality with hypokinesis of the segments, LVEF preserved 55 to 60%. (1) Chest pain Chest pain type: unspecified Qualified Code(s): R07.9 - Chest pain, unspecified
[2021-04-12 17:32] LABS: D Dimer 4140 ug/L FEU (0-500)
--- NOTE | 2021-04-12 17:56 | History & Physical Report ---
Date of Service April 12, 2021 Assessment & Plan (1) Chest pain: (2) CAD (coronary artery disease): Plan: Per PREMA jay: -Patient presenting from [facility] with reports of an episode of chest pain. Patient is a poor historian. -History of CAD, inferior wall [place] in 2018 s/p BMS to proximal RCA -In the ED, patient's EKG shows new T wave inversions in leads V1 through V3, initial troponin negative -Symptoms may be GI in nature due to recent initiation of doxycycline, however given risk factors will admit patient to rule out ACS -Serial cardiac enzymes, resting echo -Cardiology consult, case discussed with Dr. Gonzalez -Continue ASA, statin, beta-bryant. Holding CAYDEN inhibitor due to YUMI 04/12/2021 Troponin x3: Negative EKG this morning not showing any signs of acute ischemia or infarct Echocardiogram pending Rn Emergency consulted Continue usual aspirin, metoprolol, lisinopril (3) YUMI (acute kidney injury): Plan: Per PREMA jay's notes: -Creatinine 1.6 (baseline ~ 1.1) -Patient's reports that he does not drink a lot of fluids at baseline. -Likely prerenal nature due to poor p.o. intake in combination with CAYDEN inhibitor and diuretic use Given gentle IV fluids Creatinine improved from 1.6-1.1 Resume lisinopril Hold Lasix for now (4) Cellulitis of right lower extremity: Plan: -Recently admitted to [facility] for sepsis due to cellulitis of right lower extremity -Discharged on doxycycline, patient to complete course on 04/15 Wound culture ordered Wound care nurse consult (5) HTN (hypertension): Plan: -Continue metoprolol and amlodipine, resume lisinopril (6) Chronic diastolic CHF (congestive heart failure): Plan: -Currently with YUMI -Appears euvolemic on my exam Hold Lasix for today in light of acute renal failure yesterday -Monitor volume status closely (7) CHRISTINE on CPAP: Plan: -CPAP as per home settings (8) COPD (chronic obstructive pulmonary disease): Plan: -No signs of acute exacerbation, continue home inhalers (9) DM type 2 (diabetes mellitus, type 2): Plan: -Hgb A1c 6.5 02/2021 -NovoLog per protocol while hospitalized (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: Plan: -No acute issues, follows with the hemophilia center at [facility] (11) DVT prophylaxis: Plan: -SQ heparin Admission and Anticipated Discharge Date Admission Date: April 11, 2021 History of Present Illness Chief Complaint: Cough, shortness of breath c Primary Care Provider: Kacy Lopez 83-year-old male with history of COPD, chronic hypoxic respiratory failure CAD, pancreatic cancer, status post radiation therapy, presenting with cough and shortness of breath x3 days Allergies Allergy/AdvReac Type Severity Reaction Status Date / Time No Known Allergies Allergy Unverified 04/11/21 10:45 Home Medications Medication Instructions Recorded Confirmed Type acetaminophen 325 mg tablet 650 mg PO QID 04/11/21 04/11/21 History albuterol sulfate 90 mcg/actuation 180 inh INHALATION QID PRN 04/11/21 04/11/21 History aerosol inhaler amlodipine 10 mg tablet 10 mg PO DAILY 04/11/21 04/11/21 History aspirin 81 mg tablet,delayed 81 mg PO DAILY 04/11/21 04/11/21 History release atorvastatin 40 mg tablet 80 mg PO HS 04/11/21 04/11/21 History baclofen 10 mg tablet 10 mg PO BID 04/11/21 04/11/21 History bisacodyl 10 mg rectal suppository 10 mg SD DAILY PRN 04/11/21 04/11/21 History bupropion HCl 150 mg tablet,12 hr 300 mg PO DAILY 04/11/21 04/11/21 History sustained-release docusate sodium 100 mg capsule 100 mg PO BID 04/11/21 04/11/21 History doxycycline hyclate 100 mg tablet 100 mg PO BID 04/11/21 04/11/21 History duloxetine 30 mg capsule,delayed 60 mg PO DAILY 04/11/21 04/11/21 History release enoxaparin 40 mg/0.4 mL 40 mg SUBCUT DAILY 04/11/21 04/11/21 History subcutaneous syringe ergocalciferol (vitamin D2) 1,250 1,250 mcg PO Q7D 04/11/21 04/11/21 History mcg (50,000 unit) capsule (Vitamin D2) finasteride 5 mg tablet 5 mg PO DAILY 04/11/21 04/11/21 History fluticasone propionate 50 2 spray INTRANASAL DAILY 04/11/21 04/11/21 History mcg/actuation nasal spray,suspension furosemide 40 mg tablet 60 mg PO DAILY 04/11/21 04/11/21 History gabapentin 300 mg capsule 600 mg PO TID 04/11/21 04/11/21 History insulin regular human 100 unit/mL See Rx Instructions .ROUTE .COMPLEX 04/11/21 04/11/21 History injection solution (Humulin R Regular U-100 Insulin) lisinopril 20 mg tablet 20 mg PO DAILY 04/11/21 04/11/21 History metformin 1,000 mg tablet 1,000 mg PO BID 04/11/21 04/11/21 History metoprolol succinate 50 mg 50 mg PO DAILY 04/11/21 04/11/21 History tablet,extended release 24 hr multivitamin 1 tab PO DAILY 04/11/21 04/11/21 History nitroglycerin 0.4 mg sublingual 0.4 mg SUBLINGUAL UD PRN 04/11/21 04/11/21 History tablet oxycodone 10 mg tablet,crush 10 mg PO BID 04/11/21 04/11/21 History resistant,extended release 12 hr polyethylene glycol 3350 17 17 g PO DAILY PRN 04/11/21 04/11/21 History gram/dose oral powder sennosides 8.6 mg tablet (senna) 8.6 mg PO DAILY PRN 04/11/21 04/11/21 History sitagliptin 100 mg tablet 100 mg PO DAILY 04/11/21 04/11/21 History tamsulosin 0.4 mg capsule 0.4 mg PO BID 04/11/21 04/11/21 History topiramate 25 mg tablet 50 mg PO HS 04/11/21 04/11/21 History umeclidinium 62.5 mcg-vilanterol 1 ea INHALATION DAILY 04/11/21 04/11/21 History 25 mcg/actuation powdr for inhalation Past Med/Surg History Medical History BPH (benign prostatic hyperplasia) CAD (coronary artery disease) 01/2018-inferior [place] s/p BMS to proximal RCA Chronic diastolic CHF (congestive heart failure) COPD (chronic obstructive pulmonary disease) DM type 2 (diabetes mellitus, type 2) Factor VIII deficiency hemophilia HTN (hypertension) CHRISTINE on CPAP Surgical History History of neck surgery History of right-sided carotid endarterectomy Family History Mother Hypertension Social History Smoking Status: Former smoker Tobacco Type: Cigarettes Hx Alcohol Use: No Hx Substance Use: No Preferred Language: Bahraini Communication Ability: Unable Smocking Machine Operator Required: No Beliefs That Will Affect Care: None marital status: Current Living Situation: Spouse How many Children do You have: 2 Other Information That Helps Us Care for You: No Feels Safe at Home: Yes Safety Concerns: Feels Safe At This Time Assistive Devices: Walker and Wheelchair Results & Data Results & Data ([facility]) Vital Signs (Past 12 Hours) Vital Signs Temp Pulse Pulse Resp BP Pulse Ox 04/12/21 16:00 83 04/12/21 15:00 36.9 C 85 17 106/70 91 04/12/21 10:35 36.8 C 93 H 17 141/87 H 92 04/12/21 08:00 86 04/12/21 07:32 36.8 C 88 17 137/80 90 Code Status & VTE Plan VTE Prophylaxis Plan VTE Prophylaxis will be ordered: Yes
[2021-04-12] MEDS ORDERED: OPTIRAY 320 125ml IV ONE (18:46)
--- NOTE | 2021-04-12 19:15 | CT Scan Report ---
CHEST CTA for PULMONARY ARTERIES CT DOSE: 914.71 mGy.cm HISTORY: Atypical chest pain. Shortness of breath. PE TECHNIQUE: Multiaxial CT images of the chest were performed following the intravenous administration of contrast to evaluate the pulmonary arteries. Maximal intensity projection images were also obtaine d. A dose lowering technique was utilized adhering to the principles of ALARA. COMPARISON STUDY: None. FINDINGS: Old compression deformities with vertebroplasty within the mid thoracic spine. Cervicothora cic anterior spinal fusion hardware is noted. Multiple old, healed bilateral lower rib fractures. The central airways are patent. Elevated right hemidiaphragm. No pneumothorax. Trace right pleural effus ion. Bilateral lower lobe densities consistent with subsegmental atelectasis. This is most pronounced on the right. Otherwise, no focal lung consolidations to suggest pneumonia. No evidence for pulmonar y edema. Limited views of the upper abdomen demonstrate a subcentimeter hypodense lesion within the r ight hepatic dome. This is technically too small to characterize but statistically represents a cyst. The visualized spleen and left adrenal gland are unremarkable. There is a 1 cm right adrenal adenoma . Mild bilateral gynecomastia. The heart is normal in size. No pericardial effusion. No hilar lymphad enopathy. Minimal inflammatory change at the gastroesophageal junction with a single prominent distal paraesophageal lymph node best seen on image 60. This measures 9 mm. Mild thickening at the gastroes ophageal junction is also noted. Normal caliber thoracic aorta with no evidence for dissection. Mild calcified plaque within the thoracic aorta. Extensive calcified plaque within the coronary arteries. No filling defects within the pulmonary arteries to suggest a pulmonary embolus. IMPRESSION: 1. No evidence for pulmonary embolus. 2. Trace right pleural effusion. 3. Mild thickening at the gastroesophageal junction with adjacent fat stranding and a single enlarged distal paraesophageal lymph node. This could be due to a distal esophagitis. Follow-up nonemergent e ndoscopy is recommended to exclude the possibility of underlying esophageal mass. 3. Elevated right hemidiaphragm with right basilar subsegmental atelectasis. This is likely chronic. ACT 112: Negative or not required by law. Electronically signed by: Pancho Brice M.D. 04/12/2021 7:13 PM
[2021-04-12] MEDS: ATORVASTATIN 40 MG TAB PO SCH (20:23)
[2021-04-12] MEDS: TOPIRAMATE 50 MG TAB PO SCH (20:46)
[2021-04-13] MEDS: HEPARIN SOD 5,000 UNIT/0.5 ML VIAL SQ SCH ×3 (05:42→20:25)
--- NOTE | 2021-04-13 07:57 | Electrocardiogram Report ---
Test Reason : Blood Pressure : / mmHG Vent. Rate : 078 BPM Atrial Rate : 078 BPM P-R Int : 158 ms QRS Dur : 092 ms QT Int : 408 ms P-R-T Axes : 126 164 077 degrees QTc Int : 465 ms Suspect arm lead reversal, interpretation assumes no reversal Unusual P axis, possible ectopic atrial rhythm Right axis deviation Abnormal ECG When compared with ECG of 12-APR-2021 05:50, Ectopic atrial rhythm has replaced Sinus rhythm (likely limb lead reversal) QRS axis Shifted right Confirmed by Chaz Arteaga ([id number]) on 04/13/2021 7:56:52 AM Referred By: [facility] Confirmed By:Oscar Arteaga
[2021-04-13 08:28] LABS: BUN Creatinine Ratio 22.1 (10-20); Calcium 8.8 mg/dl (8.5-10.1); Creatinine Clr Calc Pharmacy 62.7 ml/min; Est GFR (African American) 77.2 ml/min; Est GFR (Non-African American) 66.6 ml/min; Potassium 3.6 mmol/L (3.5-5.1)
[2021-04-13] MEDS: INSULIN ASPART 100 UNITS/ML 3 ML PEN SC SCH ×4 (08:44→20:25)
[2021-04-13] MEDS: BACLOFEN 10 MG TAB PO SCH ×2 (08:46→20:25)
[2021-04-13] MEDS: buPROPion SR 150 MG TABCR PO SCH (08:47)
[2021-04-13] MEDS: DOXYCYCLINE HYCLATE 100 MG CAP PO SCH ×2 (08:47→20:25)
[2021-04-13] MEDS: POTASSIUM CHLORIDE CRTAB 20 MEQ TABCR PO SCH (08:48)
[2021-04-13] MEDS: lisinopril 20 MG TAB PO SCH (08:48)
[2021-04-13] MEDS: PANTOprazole 40 MG TAB PO SCH (08:49)
[2021-04-13] MEDS: FINASTERIDE 5 MG TAB PO SCH (08:49)
[2021-04-13] MEDS: amLODIPine BESYLATE 5 MG TAB PO SCH (08:50)
[2021-04-13] MEDS: TAMSULOSIN HCL 0.4 MG CAP PO SCH ×2 (08:50→20:25)
[2021-04-13] MEDS: ASPIRIN 81 MG ECTAB PO SCH (08:50)
[2021-04-13] MEDS: DULoxetine HCL 60 MG CAP PO SCH (08:50)
[2021-04-13] MEDS: GABAPENTIN 300 MG CAP PO SCH ×2 (08:51→20:25)
[2021-04-13] MEDS: METOPROLOL SUCC 50MG EXT REL TAB PO SCH (08:58)
[2021-04-13] MEDS: UMECLIDINIUM/VILANTEROL 62.5/25MCG 7 PUFFS/INHALER INH SCH (09:04)
[2021-04-13] MEDS: DOCUSATE SODIUM 100 MG CAP PO SCH ×2 (09:10→20:40)
[2021-04-13] MEDS: oxyCODONE HCL 10 MG TABCR (OxyCONTIN) PO SCH ×2 (09:33→20:25)
--- NOTE | 2021-04-13 11:22 | Gastrointestinal Consultation ---
Date of Consultation April 13, 2021 Assessment & Plan (1) Chest pain: (2) Abnormal CT of the chest: esophageal wall thickening with enlarged LN, rule out malignancy vs. stricture or esophagitis Recs: NPO post midnight EGD tomorrow to further evaluate supportive care Thank you for allowing me to participate in the care of this patient History of Present Illness Attending Physician: Fabrizio Ham MD History of Present Illness 75 yo male with hx DM2, COPD, CHRISTINE on CPAP, diastolic CHF, CAD with ND and BMS to RCA, GERD, carotid endarterectomy here with chest pain. Seen by cardiology and troponin neg x 3, cardiac etiology essentially ruled out. GI consulted as his CTA showed esophageal thickening and enlarged paraesophageal LN. He describes the pain as an indigestion like discomfort, gets this from time to time. Denies dysphagia, early satiety, change in appetite, family hx esophageal nor gastric cancer, smoking history. Currently without any discomfort or pain. labs reviewed, VSS. Allergies Allergy/AdvReac Type Severity Reaction Status Date / Time No Known Allergies Allergy Unverified 04/11/21 10:45 Home Medications Medication Instructions Recorded Confirmed Type acetaminophen 325 mg tablet 650 mg PO QID 04/11/21 04/11/21 History albuterol sulfate 90 mcg/actuation 180 inh INHALATION QID PRN 04/11/21 04/11/21 History aerosol inhaler amlodipine 10 mg tablet 10 mg PO DAILY 04/11/21 04/11/21 History aspirin 81 mg tablet,delayed 81 mg PO DAILY 04/11/21 04/11/21 History release atorvastatin 40 mg tablet 80 mg PO HS 04/11/21 04/11/21 History baclofen 10 mg tablet 10 mg PO BID 04/11/21 04/11/21 History bisacodyl 10 mg rectal suppository 10 mg KS DAILY PRN 04/11/21 04/11/21 History bupropion HCl 150 mg tablet,12 hr 300 mg PO DAILY 04/11/21 04/11/21 History sustained-release docusate sodium 100 mg capsule 100 mg PO BID 04/11/21 04/11/21 History doxycycline hyclate 100 mg tablet 100 mg PO BID 04/11/21 04/11/21 History duloxetine 30 mg capsule,delayed 60 mg PO DAILY 04/11/21 04/11/21 History release enoxaparin 40 mg/0.4 mL 40 mg SUBCUT DAILY 04/11/21 04/11/21 History subcutaneous syringe ergocalciferol (vitamin D2) 1,250 1,250 mcg PO Q7D 04/11/21 04/11/21 History mcg (50,000 unit) capsule (Vitamin D2) finasteride 5 mg tablet 5 mg PO DAILY 04/11/21 04/11/21 History fluticasone propionate 50 2 spray INTRANASAL DAILY 04/11/21 04/11/21 History mcg/actuation nasal spray,suspension furosemide 40 mg tablet 60 mg PO DAILY 04/11/21 04/11/21 History gabapentin 300 mg capsule 600 mg PO TID 04/11/21 04/11/21 History insulin regular human 100 unit/mL See Rx Instructions .ROUTE .COMPLEX 04/11/21 04/11/21 History injection solution (Humulin R Regular U-100 Insulin) lisinopril 20 mg tablet 20 mg PO DAILY 04/11/21 04/11/21 History metformin 1,000 mg tablet 1,000 mg PO BID 04/11/21 04/11/21 History metoprolol succinate 50 mg 50 mg PO DAILY 04/11/21 04/11/21 History tablet,extended release 24 hr multivitamin 1 tab PO DAILY 04/11/21 04/11/21 History nitroglycerin 0.4 mg sublingual 0.4 mg SUBLINGUAL UD PRN 04/11/21 04/11/21 History tablet oxycodone 10 mg tablet,crush 10 mg PO BID 04/11/21 04/11/21 History resistant,extended release 12 hr polyethylene glycol 3350 17 17 g PO DAILY PRN 04/11/21 04/11/21 History gram/dose oral powder sennosides 8.6 mg tablet (senna) 8.6 mg PO DAILY PRN 04/11/21 04/11/21 History sitagliptin 100 mg tablet 100 mg PO DAILY 04/11/21 04/11/21 History tamsulosin 0.4 mg capsule 0.4 mg PO BID 04/11/21 04/11/21 History topiramate 25 mg tablet 50 mg PO HS 04/11/21 04/11/21 History umeclidinium 62.5 mcg-vilanterol 1 ea INHALATION DAILY 04/11/21 04/11/21 History 25 mcg/actuation powdr for inhalation Patient History Medical History BPH (benign prostatic hyperplasia) CAD (coronary artery disease) 01/2018-inferior [place] s/p BMS to proximal RCA Chronic diastolic CHF (congestive heart failure) COPD (chronic obstructive pulmonary disease) DM type 2 (diabetes mellitus, type 2) Factor VIII deficiency hemophilia HTN (hypertension) CHRISTINE on CPAP Surgical History History of neck surgery History of right-sided carotid endarterectomy Family History Mother Hypertension Social History Smoking Status: Former smoker Tobacco Type: Cigarettes Hx Alcohol Use: No Hx Substance Use: No Preferred Language: Romansh Communication Ability: Unable Bundle Clerk Required: No Beliefs That Will Affect Care: None marital status: Current Living Situation: Spouse How many Children do You have: 2 Other Information That Helps Us Care for You: No Feels Safe at Home: Yes Safety Concerns: Feels Safe At This Time Assistive Devices: None Review of Systems Constitutional: no fever, no chills and no weight loss Eyes: as per Subjective / HPI Ear, Nose, Mouth, Throat: as per Subjective / HPI Respiratory: no dyspnea and no dyspnea on exertion Cardiovascular: no chest pain and no palpitations Gastrointestinal: as per Subjective / HPI Musculoskeletal: no joint pain and no swelling Integumentary: no rash and no lesions Neurologic: no numbness and no paresthesia Psychiatric: no depression and no anxiety Endocrine: no fatigue Hematologic / Lymphatic: no easy bleeding and no easy bruising Physical Exam Constitutional: WD/WN, vitals as above Eyes: EOM intact bilaterally Neck: normal visual inspection Respiratory: normal respiratory effort, lungs clear to auscultation Cardiovascular: RRR, no murmur, no edema Gastrointestinal (Abdomen): Inspection/Auscultation: abdomen normal to inspection; abdomen not distended Percussion/Palpation: abdomen soft; abdomen nontender and no hepatosplenomegaly Musculoskeletal: Extremities: no cyanosis Gait: normal gait Skin: no rashes, warm and dry Neurologic: moves all extremities Psychiatric: A+Ox3, euthymic affect Results & Data ([facility]) Vital Signs (Past 12 Hours) Vital Signs Temp Pulse Resp BP Pulse Ox 04/13/21 10:39 36.6 C 76 20 119/72 93 04/13/21 08:07 36.6 C 80 18 158/85 H 94 04/13/21 02:59 36.4 C L 73 20 107/68 95 04/12/21 23:45 36.8 C 64 19 127/75 93 PG Care Time/CCT Total # of Minutes Spent Total Time Spent with Patient: Total time spent is greater than 50% in coordination of care (as documented) at patient's floor/unit and/or counseling patient: Coding Level of Care Code 24320 Office/OBS Consult Lvl 4 Diagnoses Chest pain R07.9 Chest pain type: unspecified Abnormal CT of the chest R93.89 (1) Chest pain Chest pain type: unspecified Qualified Code(s): R07.9 - Chest pain, unspecified
--- NOTE | 2021-04-13 14:35 | Hospitalist Progress Note ---
Date of Service April 13, 2021 Assessment & Plan (1) Chest pain: (2) CAD (coronary artery disease): Plan: Per PREMA jay: -Patient presenting from [facility] with reports of an episode of chest pain. Patient is a poor historian. -History of CAD, inferior wall [place] in 2018 s/p BMS to proximal RCA -In the ED, patient's EKG shows new T wave inversions in leads V1 through V3, initial troponin negative -Symptoms may be GI in nature due to recent initiation of doxycycline, however given risk factors will admit patient to rule out ACS -Serial cardiac enzymes, resting echo -Cardiology consult, case discussed with Dr. Gonzalez -Continue ASA, statin, beta-bryant. Holding CAYDEN inhibitor due to YUMI 04/13/2021 Troponin x3: Negative EKG this morning not showing any signs of acute ischemia or infarct Echocardiogram mild concentric LVH, EF 55-60%, grade 1 diastolic dysfunction Passenger Vessel Chef consulted- non cardiac etiology Continue usual aspirin, metoprolol, lisinopril CT chest: no PE possible Esophagitis? GI consulted for EGD tomorrow (3) YUMI (acute kidney injury): Plan: Per PREMA jay's notes: -Creatinine 1.6 (baseline ~ 1.1) -Patient's reports that he does not drink a lot of fluids at baseline. -Likely prerenal nature due to poor p.o. intake in combination with CAYDEN inhibitor and diuretic use Given gentle IV fluids Creatinine improved from 1.6-1.1 Resume lisinopril Hold Lasix for now (3rd day) (4) Cellulitis of right lower extremity: Plan: -Recently admitted to [facility] for sepsis due to cellulitis of right lower extremity -Discharged on doxycycline, patient to complete course on 04/15 Wound culture ordered: no growth to date Wound care nurse consult wound healing well (5) HTN (hypertension): Plan: -Continue metoprolol and amlodipine, resumed lisinopril (6) Chronic diastolic CHF (congestive heart failure): Plan: -Currently with YUMI -Appears euvolemic on my exam Hold Lasix for today -Monitor volume status closely (7) CHRISTINE on CPAP: Plan: -CPAP as per home settings (8) COPD (chronic obstructive pulmonary disease): Plan: -No signs of acute exacerbation, continue home inhalers (9) DM type 2 (diabetes mellitus, type 2): Plan: -Hgb A1c 6.5 02/2021 -NovoLog per protocol while hospitalized (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: Plan: -No acute issues, follows with the hemophilia center at [facility] (11) DVT prophylaxis: Plan: -SQ heparin Admission and Anticipated Discharge Date Admission Date: April 11, 2021 Subjective ff up for atypical chest pain, etc seen resting in bed, comfortable states he feels fine overall no chest pain on exam no nausea, vomiting tolerating diet well requires 2 person assist no other symptoms Review of Systems Review of Systems: all noted and negative except for above Physical Exam Physical Exam: General- oriented x 2, not in distress, speaks in sentences with no effort or accessory muscle use Eyes- anicteric Neck- no JVD Lungs- clear breath sounds bilaterally, no rales/wheezes Heart- normal rate, regular rhythm; no murmurs Abdomen- normal bowel sounds, nondistended, soft, nontender Extremities- no pretibial edema, no calf tenderness right lower leg: less edema/warmth/erythema blister- drying up, no bleeding/discharge Neuro- alert, oriented x 2; no gross focal neurologic deficits Skin- warm & dry Results & Data Results & Data ([facility]) Vital Signs (Past 12 Hours) Vital Signs Temp Pulse Resp BP Pulse Ox 04/13/21 10:39 36.6 C 76 20 119/72 93 04/13/21 08:07 36.6 C 80 18 158/85 H 94 04/13/21 02:59 36.4 C L 73 20 107/68 95 all noted and reviewed including below
[2021-04-13] MEDS: TOPIRAMATE 50 MG TAB PO SCH (20:25)
[2021-04-13] MEDS: ATORVASTATIN 40 MG TAB PO SCH (20:25)
[2021-04-14] MEDS: HEPARIN SOD 5,000 UNIT/0.5 ML VIAL SQ SCH (05:04)
[2021-04-14 06:23] LABS: Hematocrit (blood only) 38.2 % (42-52); Hemoglobin 12.6 g/dL (14.0-18.0); Mean Corpuscular Hemoglobin 31.4 pg (25-34); Mean Corpuscular Volume 95.3 fL (80-100); Mean Platelet Volume 9.7 fL (7.4-10.4); Platelet Count 273 K/uL (130-400); RDW Coefficient of Variation 14.1 % (11.5-14.5); RDW Standard Deviation 48.8 fL (36.4-46.3); Red Blood Count 4.01 M/uL (4.7-6.1); White Blood Count 8.01 K/uL (4.8-10.8)
[2021-04-14] MEDS: INSULIN ASPART 100 UNITS/ML 3 ML PEN SC SCH ×4 (07:25→22:59)
[2021-04-14] MEDS: UMECLIDINIUM/VILANTEROL 62.5/25MCG 7 PUFFS/INHALER INH SCH (08:00)
[2021-04-14] MEDS: lisinopril 20 MG TAB PO SCH (08:00)
[2021-04-14] MEDS: TAMSULOSIN HCL 0.4 MG CAP PO SCH ×2 (08:00→21:00)
[2021-04-14] MEDS: amLODIPine BESYLATE 5 MG TAB PO SCH (08:00)
[2021-04-14] MEDS: oxyCODONE HCL 10 MG TABCR (OxyCONTIN) PO SCH ×2 (12:45→21:36)
[2021-04-14] MEDS: PANTOprazole 40 MG TAB PO SCH (12:45)
[2021-04-14] MEDS ORDERED: LIDOCAINE 2% 2 ML VIAL/AMP(20MG/ML) INFIL ONE (13:01)
[2021-04-14] MEDS ORDERED: PROPOFOL IV EMULSION 10 MG/ML 20 ML VIAL IV ONE (13:01)
--- NOTE | 2021-04-14 13:03 | Anesthesiology Consultation ---
Date of Service April 14, 2021 Assessment & Plan Chart Review Chart Review: Acceptable Risk for Surgery Consults Requested none History Surgery Operation Date: 04/14/21 16:30 Proposed Procedures p Esophagogastroduodenoscopy Dr. Bebeto Tate MD Height/Weight Height: 5 ft 7 in Weight: 90.7 kg Allergies Allergy/AdvReac Type Severity Reaction Status Date / Time No Known Allergies Allergy Unverified 04/11/21 10:45 Medications Home Medications Medication Instructions Recorded Confirmed Last Taken acetaminophen 325 mg tablet 650 mg PO QID 04/11/21 04/11/21 Unknown albuterol sulfate 90 mcg/actuation 180 inh INHALATION QID PRN 04/11/21 04/11/21 Unknown aerosol inhaler amlodipine 10 mg tablet 10 mg PO DAILY 04/11/21 04/11/21 Unknown aspirin 81 mg tablet,delayed 81 mg PO DAILY 04/11/21 04/11/21 Unknown release atorvastatin 40 mg tablet 80 mg PO HS 04/11/21 04/11/21 Unknown baclofen 10 mg tablet 10 mg PO BID 04/11/21 04/11/21 Unknown bisacodyl 10 mg rectal suppository 10 mg MS DAILY PRN 04/11/21 04/11/21 Unknown bupropion HCl 150 mg tablet,12 hr 300 mg PO DAILY 04/11/21 04/11/21 Unknown sustained-release docusate sodium 100 mg capsule 100 mg PO BID 04/11/21 04/11/21 Unknown doxycycline hyclate 100 mg tablet 100 mg PO BID 04/11/21 04/11/21 Unknown duloxetine 30 mg capsule,delayed 60 mg PO DAILY 04/11/21 04/11/21 Unknown release enoxaparin 40 mg/0.4 mL 40 mg SUBCUT DAILY 04/11/21 04/11/21 Unknown subcutaneous syringe ergocalciferol (vitamin D2) 1,250 1,250 mcg PO Q7D 04/11/21 04/11/21 Unknown mcg (50,000 unit) capsule (Vitamin D2) finasteride 5 mg tablet 5 mg PO DAILY 04/11/21 04/11/21 Unknown fluticasone propionate 50 2 spray INTRANASAL DAILY 04/11/21 04/11/21 Unknown mcg/actuation nasal spray,suspension furosemide 40 mg tablet 60 mg PO DAILY 04/11/21 04/11/21 Unknown gabapentin 300 mg capsule 600 mg PO TID 04/11/21 04/11/21 Unknown insulin regular human 100 unit/mL See Rx Instructions .ROUTE .COMPLEX 04/11/21 04/11/21 Unknown injection solution (Humulin R Regular U-100 Insulin) lisinopril 20 mg tablet 20 mg PO DAILY 04/11/21 04/11/21 Unknown metformin 1,000 mg tablet 1,000 mg PO BID 04/11/21 04/11/21 Unknown metoprolol succinate 50 mg 50 mg PO DAILY 04/11/21 04/11/21 Unknown tablet,extended release 24 hr multivitamin 1 tab PO DAILY 04/11/21 04/11/21 Unknown nitroglycerin 0.4 mg sublingual 0.4 mg SUBLINGUAL UD PRN 04/11/21 04/11/21 Unknown tablet oxycodone 10 mg tablet,crush 10 mg PO BID 04/11/21 04/11/21 Unknown resistant,extended release 12 hr polyethylene glycol 3350 17 17 g PO DAILY PRN 04/11/21 04/11/21 Unknown gram/dose oral powder sennosides 8.6 mg tablet (senna) 8.6 mg PO DAILY PRN 04/11/21 04/11/21 Unknown sitagliptin 100 mg tablet 100 mg PO DAILY 04/11/21 04/11/21 Unknown tamsulosin 0.4 mg capsule 0.4 mg PO BID 04/11/21 04/11/21 Unknown topiramate 25 mg tablet 50 mg PO HS 04/11/21 04/11/21 Unknown umeclidinium 62.5 mcg-vilanterol 1 ea INHALATION DAILY 04/11/21 04/11/21 Unknown 25 mcg/actuation powdr for inhalation Active Medications Generic Name Dose Route Start Last Admin Trade Name Freq PRN Reason Stop Dose Admin Al Hydrox/Mg Hydrox/Simethicone 30 ml 04/12/21 10:26 04/13/21 16:08 Aluminum/Magnesium Susp 30 Ml Udc PO 05/12/21 10:25 30 ml Q6H PRN Administration Dyspepsia Amlodipine Besylate 10 mg 04/12/21 09:00 04/14/21 08:00 Amlodipine Besylate 5 Mg Tab PO 05/12/21 08:59 10 mg DAILY BHARTI Administration Aspirin 81 mg 04/12/21 09:00 04/13/21 08:50 Aspirin 81 Mg Ectab PO 05/12/21 08:59 81 mg DAILY BHARTI Administration Atorvastatin Calcium 80 mg 04/11/21 21:00 04/13/21 20:25 Atorvastatin 40 Mg Tab PO 05/11/21 20:59 80 mg HS BHARTI Administration Baclofen 5 mg 04/11/21 21:00 04/13/21 20:25 Baclofen 10 Mg Tab PO 05/11/21 20:59 5 mg BID BHARTI Administration Bupropion HCl 300 mg 04/12/21 09:00 04/13/21 08:47 Bupropion Sr 150 Mg Tabcr PO 05/12/21 08:59 300 mg DAILY BHARTI Administration Docusate Sodium 100 mg 04/11/21 21:00 04/13/21 20:40 Docusate Sodium 100 Mg Cap PO 05/11/21 20:59 100 mg BID BHARTI Administration Doxycycline Hyclate 100 mg 04/11/21 21:00 04/13/21 20:25 Doxycycline Hyclate 100 Mg Cap PO 04/15/21 20:59 100 mg BID BHARTI Administration Duloxetine HCl 60 mg 04/12/21 09:00 04/13/21 08:50 Duloxetine Hcl 60 Mg Cap PO 05/12/21 08:59 60 mg DAILY BHARTI Administration Finasteride 5 mg 04/12/21 09:00 04/13/21 08:49 Finasteride 5 Mg Tab PO 05/12/21 08:59 5 mg DAILY BHARTI Administration Gabapentin 600 mg 04/11/21 21:00 04/13/21 20:25 Gabapentin 300 Mg Cap PO 05/11/21 20:59 600 mg BID BHARTI Administration Insulin Aspart 0 units 04/11/21 17:41 04/14/21 12:17 Insulin Aspart 100 Units/Ml 3 Ml Pen SC 05/11/21 17:40 Not Given ACHS BHARTI Lisinopril 20 mg 04/12/21 11:15 04/14/21 08:00 Lisinopril 20 Mg Tab PO 05/12/21 11:14 20 mg DAILY BHARTI Administration Metoprolol Succinate 50 mg 04/12/21 09:00 04/13/21 08:58 Metoprolol Succ 50mg Ext Rel Tab PO 05/12/21 08:59 50 mg DAILY BHARTI Administration Oxycodone HCl 10 mg 04/11/21 21:00 04/13/21 20:25 Oxycodone Hcl 10 Mg Tabcr (Oxycontin) PO 04/25/21 20:59 10 mg BID BHARTI Administration Pantoprazole Sodium 40 mg 04/12/21 11:15 04/13/21 08:49 Pantoprazole 40 Mg Tab PO 05/12/21 11:14 40 mg QAM BHARTI Administration Potassium Chloride 40 meq 04/12/21 09:00 04/13/21 08:48 Potassium Chloride Crtab 20 Meq Tabcr PO 05/12/21 08:59 40 meq DAILY BHARTI Administration Tamsulosin HCl 0.4 mg 04/11/21 21:00 04/14/21 08:00 Tamsulosin Hcl 0.4 Mg Cap PO 05/11/21 20:59 0.4 mg BID BHARTI Administration Topiramate 50 mg 04/11/21 21:00 04/13/21 20:25 Topiramate 50 Mg Tab PO 05/11/21 20:59 50 mg HS BHARTI Administration Umeclidinium/Vilanterol 1 puffs 04/12/21 09:00 04/14/21 08:00 Umeclidinium/Vilanterol 62.5/25mcg 7 Puffs/Inhaler INH 05/12/21 08:59 1 puffs DAILY BHARTI Administration Past Medical History Medical History BPH (benign prostatic hyperplasia) CAD (coronary artery disease) 01/2018-inferior [place] s/p BMS to proximal RCA Chronic diastolic CHF (congestive heart failure) COPD (chronic obstructive pulmonary disease) DM type 2 (diabetes mellitus, type 2) Factor VIII deficiency hemophilia HTN (hypertension) CHRISTINE on CPAP Past Family History Family History Mother Hypertension Past Surgical History Surgical History History of neck surgery History of right-sided carotid endarterectomy Social History Smoking Status: Former smoker Hx Alcohol Use: No Hx Substance Use: No Physical Exam Vital Signs Last Vital Signs Temp 36.8 C 04/14/21 10:13 Pulse 75 04/14/21 10:13 Resp 18 04/14/21 10:13 BP 154/83 H 04/14/21 10:13 Pulse Ox 97 04/14/21 10:13 Testing Laboratory Results 04/14/21 05:52 04/13/21 07:11 04/12/21 16:30 Gram Stain - Final Leg,Right Wound Culture - Final No growth 04/14/21 04/14/21 04/14/21 11:59 06:56 04:34 POC Glucose 123 H 124 H 122 H
--- NOTE | 2021-04-14 13:07 | History & Physical Bridge Note ---
Date of Service April 14, 2021 History & Physical Bridge Note I have examined the patient, reviewed the History & Physical and in the interval since the performance of the History & Physical I have noted the following changes of clinical significance: no changes noted Proceed with EGD. risks/benefits and procedure discussed with patient, who agrees to proceed
--- NOTE | 2021-04-14 13:46 | GI REPORT ---
Patient Name: Krzysztof Cox Procedure Date: 04/14/2021 1:34 PM Date of : 1945 Admit Type: Inpatient Age: 75 Gender: Male Attending MD: Silvio Tate MD Procedure: Upper GI endoscopy Providers: Silvio Tate MD Referring MD: Silvio Tate MD Indications: Abnormal CT of the GI tract, Chest pain (non cardiac) Medicines: Monitored Anesthesia Care Complications: No immediate complications. Estimated blood loss: None. Estimated Blood Loss: Estimated blood loss: none. Procedure: Pre-Anesthesia Assessment: - Prior Anticoagulants: The patient has taken no previous anticoagulant or antiplatelet agents. - ASA Grade Assessment: II - A patient with mild systemic disease. After obtaining informed consent, the endoscope was passed under direct vision. Throughout the procedure, the patient's blood pressure, pulse, and oxygen saturations were monitored continuously. The Endoscope was introduced through the mouth, and advanced to the second part of duodenum. The upper GI endoscopy was accomplished without difficulty. The patient tolerated the procedure well. Findings: LA Grade C (one or more mucosal breaks continuous between tops of 2 or more mucosal folds, less than 75% circumference) esophagitis with no bleeding was found in the distal esophagus. Biopsies were taken with a cold forceps for histology. Estimated blood loss: none. Cells for cytology were obtained by brushing. Estimated blood loss: none. The entire examined stomach was normal. Biopsies were taken with a cold forceps for Helicobacter pylori testing. Estimated blood loss: none. The duodenal bulb and second portion of the duodenum were normal. Impression: - LA Grade C acute esophagitis. Biopsied. Cells for cytology obtained. - Normal stomach. Biopsied. - Normal duodenal bulb and second portion of the duodenum. Recommendation: - [facility]. - Advance diet as tolerated today. - Await pathology results and cytology results. -start protonix 40 mg daily for now Silvio Tate MD 04/14/2021 1:46:22 PM This report has been signed electronically. Note Initiated On: 04/14/2021 1:34 PM Number of Addenda: 0 I attest to the content of the Intraoperative Record and orders documented therein, exceptions below {[id number]}
--- NOTE | 2021-04-14 13:59 | Anesthesiology Progress Note ---
Date of Service April 14, 2021 Anesthesia Post Procedure Vital Signs Vital Signs: Temp Pulse Pulse Resp BP Pulse Ox 04/14/21 13:46 70 18 110/66 96 04/14/21 12:55 36.4 C L 75 18 150/86 H 95 04/14/21 10:13 36.8 C 75 18 154/83 H 97 04/14/21 09:53 63 04/14/21 07:56 36.8 C 68 17 143/83 H 96 04/14/21 04:39 36.4 C L 60 16 121/71 91 04/13/21 23:42 36.7 C 63 20 100/64 95 04/13/21 23:23 67 04/13/21 19:00 36.9 C 70 19 115/75 91 04/13/21 16:18 74 04/13/21 14:58 36.7 C 75 20 120/77 91 Pain Intensity Chest: Pain Intensity: 5 Generalized: Pain Intensity: 4 Transfer of Care Handoff Completed per policy Notes Mental Status: alert / awake / arousable and participated in evaluation Patient Amnestic to Procedure: Yes Nausea / Vomiting: adequately controlled Pain: adequately controlled Airway Patency, RR, SpO2: stable & adequate BP & HR: stable & adequate Hydration State: stable & adequate Anesthetic Complications: no major complications apparent
[2021-04-14] MEDS: GABAPENTIN 300 MG CAP PO SCH ×2 (14:50→20:59)
[2021-04-14] MEDS: BACLOFEN 10 MG TAB PO SCH ×2 (14:51→21:04)
[2021-04-14] MEDS: POTASSIUM CHLORIDE CRTAB 20 MEQ TABCR PO SCH (14:51)
[2021-04-14] MEDS: DOXYCYCLINE HYCLATE 100 MG CAP PO SCH ×2 (14:51→21:37)
[2021-04-14] MEDS: ASPIRIN 81 MG ECTAB PO SCH (14:52)
[2021-04-14] MEDS: DULoxetine HCL 60 MG CAP PO SCH (14:53)
[2021-04-14] MEDS: FINASTERIDE 5 MG TAB PO SCH (14:54)
[2021-04-14] MEDS: METOPROLOL SUCC 50MG EXT REL TAB PO SCH (14:54)
[2021-04-14] MEDS: buPROPion SR 150 MG TABCR PO SCH (14:55)
[2021-04-14] MEDS: DOCUSATE SODIUM 100 MG CAP PO SCH ×2 (18:05→21:04)
--- NOTE | 2021-04-14 19:51 | Hospitalist Progress Note ---
Date of Service April 14, 2021 delayed entry date of service noted above Assessment & Plan (1) Chest pain: (2) CAD (coronary artery disease): Plan: ATYPICAL CHEST PAIN LIKELY SECONDARY TO ESOPHAGITIS Per PREMA jay: -Patient presenting from [facility] with reports of an episode of chest pain. Patient is a poor historian. -History of CAD, inferior wall [place] in 2018 s/p BMS to proximal RCA -In the ED, patient's EKG shows new T wave inversions in leads V1 through V3, initial troponin negative -Symptoms may be GI in nature due to recent initiation of doxycycline, however given risk factors will admit patient to rule out ACS -Serial cardiac enzymes, resting echo -Cardiology consult, case discussed with Dr. Gonzalez -Continue ASA, statin, beta-bryant. 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 Bebeto AMDAOR grade C acute esophagitis, biopsy results pending Normal stomach Normal duodenal bulb and second portion of the duodenum Follow-up pathology and cytology results Protonix 40 mg daily Follow-up with GI (3) YUMI (acute kidney injury): Plan: Per PREMA jay's notes: -Creatinine 1.6 (baseline ~ 1.1) -Patient's reports that he does not drink a lot of fluids at baseline. -Likely prerenal nature due to poor p.o. intake in combination with CAYDEN inhibitor and diuretic use Given gentle IV fluids Creatinine improved from 1.6-1.1 Resumed lisinopril Continue Lasix (4) Cellulitis of right lower extremity: Plan: -Recently admitted to [facility] for sepsis due to cellulitis of right lower extremity -Discharged on doxycycline, patient to complete course on 04/15 Wound culture ordered: no growth to date Wound care nurse consult wound healing well (5) HTN (hypertension): Plan: -Continue metoprolol and amlodipine, resumed lisinopril (6) Chronic diastolic CHF (congestive heart failure): Plan: -Currently with YUMI -Appears euvolemic on my exam Continue Lasix now but decrease dose to 40 mg daily -Monitor volume status closely (7) CHRISTINE on CPAP: Plan: -CPAP as per home settings (8) COPD (chronic obstructive pulmonary disease): Plan: -No signs of acute exacerbation, continue home inhalers (9) DM type 2 (diabetes mellitus, type 2): Plan: -Hgb A1c 6.5 02/2021 -NovoLog per protocol while hospitalized (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: Plan: -No acute issues, follows with the hemophilia center at [facility] (11) DVT prophylaxis: Plan: -SQ heparin Admission and Anticipated Discharge Date Admission Date: April 14, 2021 Subjective Follow-up for esophagitis, etc. Seen resting in bed, comfortable, not in distress States he feels fine overall Status post EGD today Denies chest pain abdominal pain, nausea vomiting, shortness of breath, palpitations, dizziness No other symptoms Review of Systems Review of Systems: all noted and negative except for above Physical Exam Physical Exam: General- oriented x 3, not in distress, speaks in sentences with no effort or accessory muscle use Eyes- anicteric Neck- no JVD Lungs- clear BS BL Heart- normal rate, regular rhythm; no murmurs Abdomen- normal bowel sounds, nondistended, soft, no tenderness Extremities- no pretibial edema, no calf tenderness Neuro- alert, oriented x 3; no gross focal neurologic deficits Skin- warm & dry Results & Data Results & Data ([facility]) Vital Signs (Past 12 Hours) Vital Signs Temp Pulse Pulse Resp BP Pulse Ox 04/14/21 15:15 36.2 C L 80 18 156/96 H 96 04/14/21 14:55 76 04/14/21 14:45 36.4 C L 76 18 152/83 H 94 04/14/21 14:31 36.6 C 80 16 157/90 H 95 04/14/21 14:17 72 20 143/86 H 98 04/14/21 14:01 75 20 125/74 97 04/14/21 13:46 70 18 110/66 96 04/14/21 12:55 36.4 C L 75 18 150/86 H 95 04/14/21 12:40 36.6 C 77 18 146/72 H 94 04/14/21 10:13 36.8 C 75 18 154/83 H 97 04/14/21 10:11 73 04/14/21 09:53 63 04/14/21 07:56 36.8 C 68 17 143/83 H 96 all noted and reviewed including below
[2021-04-14] MEDS: TOPIRAMATE 50 MG TAB PO SCH (20:59)
[2021-04-14] MEDS: ATORVASTATIN 40 MG TAB PO SCH (21:00)
[2021-04-15] MEDS ORDERED: MICONAZOLE NITRATE POWDER 43 GM EXT PRN (06:15)
[2021-04-15] MEDS: buPROPion SR 150 MG TABCR PO SCH (08:15)
[2021-04-15] MEDS: ASPIRIN 81 MG ECTAB PO SCH (08:15)
[2021-04-15] MEDS: INSULIN ASPART 100 UNITS/ML 3 ML PEN SC SCH ×2 (08:15→12:01)
[2021-04-15] MEDS: DOXYCYCLINE HYCLATE 100 MG CAP PO SCH (08:15)
[2021-04-15] MEDS: amLODIPine BESYLATE 5 MG TAB PO SCH (08:16)
[2021-04-15] MEDS: DULoxetine HCL 60 MG CAP PO SCH (08:16)
[2021-04-15] MEDS: DOCUSATE SODIUM 100 MG CAP PO SCH (08:16)
[2021-04-15] MEDS: lisinopril 20 MG TAB PO SCH (08:16)
[2021-04-15] MEDS: POTASSIUM CHLORIDE CRTAB 20 MEQ TABCR PO SCH (08:16)
[2021-04-15] MEDS: TAMSULOSIN HCL 0.4 MG CAP PO SCH (08:16)
[2021-04-15] MEDS: GABAPENTIN 300 MG CAP PO SCH (08:16)
[2021-04-15] MEDS: METOPROLOL SUCC 50MG EXT REL TAB PO SCH (08:16)
[2021-04-15] MEDS: PANTOprazole 40 MG TAB PO SCH (08:16)
[2021-04-15] MEDS: BACLOFEN 10 MG TAB PO SCH (08:17)
[2021-04-15] MEDS: FINASTERIDE 5 MG TAB PO SCH (08:17)
[2021-04-15] MEDS: oxyCODONE HCL 10 MG TABCR (OxyCONTIN) PO SCH (08:19)
[2021-04-15] MEDS: UMECLIDINIUM/VILANTEROL 62.5/25MCG 7 PUFFS/INHALER INH SCH (09:44)
--- NOTE | 2021-04-15 13:39 | Hospitalist Progress Note ---
Date of Service April 15, 2021 Assessment & Plan (1) Chest pain: (2) CAD (coronary artery disease): Plan: ATYPICAL CHEST PAIN LIKELY SECONDARY TO ESOPHAGITIS Per PREMA jay: -Patient presenting from [facility] with reports of an episode of chest pain. Patient is a poor historian. -History of CAD, inferior wall [place] in 2018 s/p BMS to proximal RCA -In the ED, patient's EKG shows new T wave inversions in leads V1 through V3, initial troponin negative -Symptoms may be GI in nature due to recent initiation of doxycycline, however given risk factors will admit patient to rule out ACS -Serial cardiac enzymes, resting echo -Cardiology consult, case discussed with Dr. Gonzalez -Continue ASA, statin, beta-bryant. 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 Bebeto AMADOR grade C acute esophagitis, biopsy results pending Normal stomach Normal duodenal bulb and second portion of the duodenum Follow-up pathology and cytology results Protonix 40 mg daily Follow-up with GI (3) YUMI (acute kidney injury): Plan: Per PREMA jay's notes: -Creatinine 1.6 (baseline ~ 1.1) -Patient's reports that he does not drink a lot of fluids at baseline. -Likely prerenal nature due to poor p.o. intake in combination with CAYDEN inhibitor and diuretic use Given gentle IV fluids Creatinine improved from 1.6-1.1 Resumed lisinopril Continue Lasix but reduce from usual 60 mg to 40 mg p.o. daily Monitor creatinine closely while on Lasix (4) Cellulitis of right lower extremity: Plan: -Recently admitted to [facility] for sepsis due to cellulitis of right lower extremity -Discharged on doxycycline, patient to complete course on 04/15 Wound culture ordered: no growth to date Wound care nurse consult wound healing well (5) HTN (hypertension): Plan: -Continue metoprolol and amlodipine, resumed lisinopril (6) Chronic diastolic CHF (congestive heart failure): Plan: -Currently with YUMI -Appears euvolemic on my exam Continue Lasix but reduce from usual 60 mg to 40 mg p.o. daily Monitor creatinine closely while on Lasix -Monitor volume status closely (7) CHRISTINE on CPAP: Plan: -CPAP as per home settings (8) COPD (chronic obstructive pulmonary disease): Plan: -No signs of acute exacerbation, continue home inhalers (9) DM type 2 (diabetes mellitus, type 2): Plan: -Hgb A1c 6.5 02/2021 -NovoLog per protocol while hospitalized (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: Plan: -No acute issues, follows with the hemophilia center at [facility] (11) DVT prophylaxis: Plan: -SQ heparin Admission and Anticipated Discharge Date Admission Date: April 14, 2021 Subjective Follow-up for esophagitis, etc. Seen resting bedside chair, comfortable, not in distress, awake and alert, bright States he feels fine overall No chest pain No abdominal pain, nausea vomiting Tolerating diet well No other symptoms States he is ready for discharge today Review of Systems Review of Systems: all noted and negative except for above Physical Exam Physical Exam: General- oriented x 3, not in distress, speaks in sentences with no effort or accessory muscle use Eyes- anicteric Neck- no JVD Lungs- clear BS bilaterally, no crackles or wheezing Heart- normal rate, regular rhythm; no murmurs Abdomen- normal bowel sounds, nondistended, soft, no tenderness Extremities- no pretibial edema, no calf tenderness Neuro- alert, oriented x 3; no gross focal neurologic deficits Skin- warm & dry Results & Data Results & Data ([facility]) Vital Signs (Past 12 Hours) Vital Signs Temp Pulse Resp BP Pulse Ox 04/15/21 11:57 36.8 C 72 20 102/68 97 04/15/21 07:48 36.6 C 72 20 149/88 H 95 04/15/21 03:09 36.7 C 66 18 138/76 94 all noted and reviewed including below
--- NOTE | 2021-04-15 13:51 | Discharge Summary ---
Date of Service April 15, 2021 Admission HPI Per Admitting Provider Chief Complaint: Chest pain Primary Care Provider: Kacy Lopez 75-year-old male with PMH DM type II, COPD, CHRISTINE on CPAP, chronic diastolic CHF, CAD s/p inferior OK and BMS to proximal RCA, GERD, BPH, factor VIII deficiency hemophilia, history of right carotid endarterectomy, and other problems listed below who presents to the ED for evaluation of chest pain. Patient was recently admitted to [facility] 04/02 through 04/07 for right lower extremity cellulitis. Right foot x-ray showed a second metatarsal fracture. Patient was discharged on p.o. doxycycline. He was discharged to [facility] for rehab. Patient is a somewhat poor historian. is at the bedside. She reports that since the patient's neck surgery in 2012, he has been mostly wheelchair-bound. He is able to transfer to bed and commode. This morning, patient reports that he developed a substernal chest pain while lying in bed. Describes the pain as a pressure and when asked rate intensity he states " it was bad enough". He denies associated shortness of breath, nausea, diaphoresis. Patient is unsure how long the pain lasted. He had another similar episode in the ED. No fevers or chills. Denies vomiting, abdominal pain, diarrhea. No urinary symptoms. In the ED, EKG shows new T wave inversions in leads V1-V3, initial troponin is negative. Labs show a mild YUMI with creatinine 1.6 (baseline ~ 1.0). Patient was given GI cocktail and IV famotidine.Allergies Admission Exam (Per Admitting) Constitutional Constitutional: WD/WN, vitals as above + ill appearing (Chronically) Eyes: PERRL, conjunctivae normal, anicteric sclerae ENMT: external ear and nose normal, oropharynx normal Respiratory: normal respiratory effort, lungs clear to auscultation Cardiovascular: Rate/Rhythm: regular rate and regular rhythm Vessels: normal peripheral pulses Extremities: + edema (+1-2 edema BLE) Gastrointestinal (Abdomen): normal bowel sounds, soft, nontender, no hepatosplenomegaly Musculoskeletal: Extremities: no cyanosis and no clubbing Lower extremity strength 3/5 -at baseline Skin: no rashes, warm and dry Chronic discoloration noted to RLE with some surrounding erythema extending over the foot. report this continues to improve. Neurologic: PERRL, EOMI, accommodation nl, no face palsy, no dysarthria Psychiatric: A+Ox3, euthymic affect Discharge Data Consultations 04/11/21 11:33 ED Decision to Admit Stat 04/11/21 17:41 Consult Cardiology Routine 04/13/21 07:43 Consult Gastroenterology Routine Procedures Performed Operation Date: 04/14/21 16:30 Actual Procedures p EGD Biopsy Cytology - Silvio Tate MD CHEST CTA for PULMONARY ARTERIES CT DOSE: 914.71 mGy.cm HISTORY: Atypical chest pain. Shortness of breath. PE TECHNIQUE: Multiaxial CT images of the chest were performed following the intravenous administration of contrast to evaluate the pulmonary arteries. Maximal intensity projection images were also obtained. A dose lowering technique was utilized adhering to the principles of ALARA. COMPARISON STUDY: None. FINDINGS: Old compression deformities with vertebroplasty within the mid thoracic spine. Cervicothoracic anterior spinal fusion hardware is noted. Multiple old, healed bilateral lower rib fractures. The central airways are patent. Elevated right hemidiaphragm. No pneumothorax. Trace right pleural effusion. Bilateral lower lobe densities consistent with subsegmental atelectasis. This is most pronounced on the right. Otherwise, no focal lung consolidations to suggest pneumonia. No evidence for pulmonary edema. Limited views of the upper abdomen demonstrate a subcentimeter hypodense lesion within the right hepatic dome. This is technically too small to characterize but statistically represents a cyst. The visualized spleen and left adrenal gland are unremarkable. There is a 1 cm right adrenal adenoma. Mild bilateral gynecomastia. The heart is normal in size. No pericardial effusion. No hilar lymphadenopathy. Minimal inflammatory change at the gastroesophageal junction with a single prominent distal paraesophageal lymph node best seen on image 60. This measures 9 mm. Mild thickening at the gastroesophageal junction is also noted. Normal caliber thoracic aorta with no evidence for dissection. Mild calcified plaque within the thoracic aorta. Extensive calcified plaque within the coronary arteries. No filling defects within the pulmonary arteries to suggest a pulmonary embolus. IMPRESSION: 1. No evidence for pulmonary embolus. 2. Trace right pleural effusion. 3. Mild thickening at the gastroesophageal junction with adjacent fat stranding and a single enlarged distal paraesophageal lymph node. This could be due to a distal esophagitis. Follow-up nonemergent endoscopy is recommended to exclude the possibility of underlying esophageal mass. 3. Elevated right hemidiaphragm with right basilar subsegmental atelectasis. This is likely chronic. ACT 112: Negative or not required by law. Hospital Course (1) Chest pain: (2) CAD (coronary artery disease): ATYPICAL CHEST PAIN LIKELY SECONDARY TO ESOPHAGITIS Per PREMA jay: -Patient presenting from [facility] with reports of an episode of chest pain. Patient is a poor historian. -History of CAD, inferior wall OK in 2018 s/p BMS to proximal RCA -In the ED, patient's EKG shows new T wave inversions in leads V1 through V3, initial troponin negative -Symptoms may be GI in nature due to recent initiation of doxycycline, however given risk factors will admit patient to rule out ACS -Serial cardiac enzymes, resting echo -Cardiology consult, case discussed with Dr. Gonzalez -Continue ASA, statin, beta-bryant. Holding CAYDEN inhibitor due to YUMI 04/15/2021 Troponin x3: Negative EKG not showing any signs of acute ischemia or infarct Echocardiogram mild concentric LVH, EF 55-60%, grade 1 diastolic dysfunction [facility] consulted- non cardiac etiology Continue usual aspirin, metoprolol, lisinopril CT chest: no PE, esophagitis noted Chest pain likely secondary to esophagitis Status post EGD 04/14/[address] Bebeto AMADOR grade C acute esophagitis, biopsy results pending Normal stomach Normal duodenal bulb and second portion of the duodenum Follow-up pathology and cytology results Protonix 40 mg daily Follow-up with GI (3) YUMI (acute kidney injury): Per PREMA jay's notes: -Creatinine 1.6 (baseline ~ 1.1) -Patient's reports that he does not drink a lot of fluids at baseline. -Likely prerenal nature due to poor p.o. intake in combination with CAYDEN inhibitor and diuretic use Given gentle IV fluids Creatinine improved from 1.6-1.1 Resumed lisinopril Continue Lasix but reduce from usual 60 mg to 40 mg p.o. daily Monitor creatinine closely while on Lasix (4) Abnormal CT of the chest: Please refer to full report in the Ordered Studies section above Further work up, management, and ff up as outpatient (5) Cellulitis of right lower extremity: -Recently admitted to [facility] for sepsis due to cellulitis of right lower extremity -Discharged on doxycycline, patient to complete course on 04/15 Wound culture ordered: no growth to date Wound care nurse consult wound healing well (6) HTN (hypertension): -Continue metoprolol and amlodipine, resumed lisinopril (7) Chronic diastolic CHF (congestive heart failure): -Currently with YUMI -Appears euvolemic on my exam Continue Lasix but reduce from usual 60 mg to 40 mg p.o. daily Monitor creatinine closely while on Lasix -Monitor volume status closely (8) CHRISTINE on CPAP: -CPAP as per home settings (9) COPD (chronic obstructive pulmonary disease): -No signs of acute exacerbation, continue home inhalers (10) DM type 2 (diabetes mellitus, type 2): -Hgb A1c 6.5 02/2021 -NovoLog per protocol while hospitalized (11) Factor VIII deficiency hemophilia: -No acute issues, follows with the hemophilia center at [facility] (12) DVT prophylaxis: -SQ heparin plan of care discussed with patient in detail and at length all questions answered he is understanding, agreeable, comfortable with the plan of care
== END 2021-04-15 17:00 | DRG 391 ==
LOC: ED 08:57 → EDINP 08:57 → 2S 21:30 → 2W 04-14 07:33